=== PATIENT | female | born 1980 | race Two or more races ===

== ENCOUNTER 2025-01-27 00:48 | Inpatient (IN) | payer OTHER ==
[~2025-01-27] VITALS: Ht 160 cm; Wt 76.9 kg
--- NOTE | 2025-01-27 01:38 | ED.PDOC ---
Musculoskeletal HPI Comments HPI: Poor Historian. 45-year-old female presents to emergency department for evaluation of left upper extremity swelling extending to her left neck and left anterior chest wall. Patient is status post midline placement and removal on January 15. Patient was receiving some IV antibiotics and blood transfusion because she was a hard stick. Patient two days after her discharge from the hospital started noticing left left upper extremity swelling extending into her left anterior chest wall and left neck with some mild puffiness. Denies any other associated symptoms. Patient has been feeling some generalized weakness. Patient is visiting family in his area here and decided to check in the hospital. Patient denies bleeding from anywhere. Patient denies . Patient has an IUD. Past Medical History: Transthoracic aortic aneurysm, anemia, anxiety, Past Surgical History: Hernia repair, bone marrow biopsy recently, midline in the left upper extremity, colonoscopy, endoscopy, cholecystectomy, REVIEW OF SYSTEMS: CONSTITUTIONAL: Denies acute: fever, diaphoresis, chills, HEAD: Denies acute: headache, photophobia Eyes: Denies acute: Double vision, vision loss, eye pain, eye discharge. EARS: Denies acute: tinnitus, hearing loss, ear discharge, ear pain, THROAT: Denies acute: sore throat, swelling, difficulty swallowing , pain with swallowing, change in voice. NECK: Denies acute: neck pain, neck swelling, stiff neck. HEART: Denies acute : chest pain, palpitations, LUNGS: Denies acute: SOB, wheezing, cough, hemoptysis ABDOMEN: Denies acute: abdominal pain, Nausea, Vomiting, diarrhea, melena , hematemesis, hematochezia SKIN: Denies acute: rash, redness, lesions, itchiness. EXTREMITIES: Denies acute: calf pain, numbness, tingling, weakness, Denies acute: Low back pain. Neuro: Denies acute: focal neurological deficit, motor or sensory focal neurological deficit, tremors, seizure like activity, confusion, dizziness, change in mental status, loss of bowel or bladder function, cauda equina like symptoms. : Denies acute: dysuria, hematuria, flank pain, increase in urinary frequency. PSYCH: Denies acute: hallucination, suicidal ideation, homicidal ideation. FEMALE: Denies acute: abnormal vaginal bleeding, foul odor, unusual discharge. PHYSICAL EXAM: General: ----[id number]---acute distress, awake and alert. Head: normocephalic, atraumatic. Neck: supple, trachea is midline, no swelling. Throat: Normal phonation. Eyes:, no erythema, no purulent discharge, no proptosis, no icterus. Heart: regular rate, regular rhythm, no significant murmur appreciated. Lungs: no apparent respiratory distress, Able to speak in full sentences. No wheezing, no rhonchi, no crackles. No stridors Clear to auscultation bilaterally. Abdomen: non tender to palpation, non distended, soft, no guarding, no rebound, + bowel sounds. Examination of the chest and left neck shows slight swelling/puffiness and erythema. Examination of the area of complaint left upper extremity is noticeably more swollen than the right. Patient is neurovascularly intact in the affected extremity. Neuro: Awake, Alert, oriented to name, self, situation, follows commands GCS=15. Speech is normal. Skin: no petechia, no purpura, no cyanosis, non-pale, not jaundice. Lower extremities: --no - Pitting edema no deformity, no focal swelling, no calf TTP. Makes eye contact. moves all four extremities. Face: no apparent facial droop. Ambulating in the ED independently. No nuchal rigidity, Kernig's sign, Brudzinski's sign, no meningeal signs. ED COURSE: DISCLAIMER: This medical document was created using an electronic medical record system with voice recognition software and computerized dictation system. Although this document has been carefully reviewed, there might still be some phonetic and typographical errors. Occasional wrong-word or "sound-alike" substitutions may have occurred due to the inherent limitations of voice recognition software. These areas are purely typographical due to imperfections of the software programs and do not reflect any compromise in the patient's medical care. Please read the chart carefully and recognize, using context, where these substitutions have occurred. Chief Complaint: Body Pain Time Seen by MD: 01:05 Reviewed Notes: Allergies Allergies: Coded Allergies: Amoxicillin (Verified Allergy, Unknown, 01/27/25) Bacitracin (Verified Allergy, Unknown, 01/27/25) Clavulanic Acid (Verified Allergy, Unknown, 01/27/25) Neomycin (Verified Allergy, Unknown, 01/27/25) Penicillins (Verified Allergy, Unknown, 01/27/25) Polymyxin B (Verified Allergy, Unknown, 01/27/25) Information Source: Patient Mode of Arrival: Ambulatory Location: Left X-Ray, Labs, Meds, VS Vital Signs Date Time Temp Pulse Resp B/P (MAP) Pulse Ox O2 Delivery O2 Flow Rate FiO2 01/27/25 00:57 98.2 90 18 188/103 97 98.2 Lab Test 01/27/25 02:34 01/27/25 01:37 Range/Units Troponin I High Sensitivity 16 20 </=34 ng/L White Blood Count 7.2 4.4-10.8 10^3/uL Red Blood Count 4.31 4.0-5.20 10^6/uL Hemoglobin 9.9 L 12.2-16.2 g/dL Hematocrit 31.1 L 36.0-46.0 % Mean Corpuscular Volume 72.1 L 80.0-100.0 fL Mean Corpuscular Hemoglobin 23.0 L 28.0-32.0 pg Mean Corpuscular Hemoglobin Concent 31.9 L 32.0-36.0 g/dL Red Cell Distribution Width 23.5 H 11.8-14.3 % Platelet Count 519 H 140-450 10^3/uL Mean Platelet Volume 6.8 L 6.9-10.8 fL Neutrophils (%) (Auto) 70.9 37.0-80.0 % Lymphocytes (%) (Auto) 17.7 10.0-50.0 % Monocytes (%) (Auto) 7.8 0.0-12.0 % Eosinophils (%) (Auto) 2.9 0.0-7.0 % Basophils (%) (Auto) 0.7 0.0-2.0 % Neutrophils # (Auto) 5.1 1.6-8.6 10 ^3/uL Lymphocytes # (Auto) 1.3 0.4-5.4 10 ^3/uL Monocytes # (Auto) 0.6 0-1.3 10 ^3/uL Eosinophils # (Auto) 0.2 0-0.8 10 ^3/uL Basophils # (Auto) 0 0-0.2 10 ^3/uL Nucleated Red Blood Cells 0.0 % Prothrombin Time 10.1 9.3-11.8 sec Prothrombin Time INR 0.95 0.9-1.15 Activated Partial Thromboplast Time 28.1 24.5-34.5 SEC Sodium Level 142 136-145 mmol/L Potassium Level 4.6 3.5-5.1 mmol/L Chloride Level 104 98-107 mmol/L Carbon Dioxide Level 28 20-31 mmol/L Anion Gap 10 5-15 Blood Urea Nitrogen 20 9-23 mg/dL Creatinine 1.08 H 0.550-1.02 mg/dL Glomerular Filtration Rate Calc 65 >90 mL/min BUN/Creatinine Ratio 18.5 10.0-20.0 Serum Glucose 96 74-106 mg/dL Lactic Acid Level 0.8 0.4-2.0 mmol/L Calcium Level 9.2 8.7-10.4 mg/dL Total Bilirubin 0.3 0.2-1.0 mg/dL Aspartate Amino Transferase (AST) 28 13-40 U/L Alanine Aminotransferase (ALT) 30 7-40 U/L Alkaline Phosphatase 125 H 46-116 U/L B-Type Natriuretic Peptide 72.80 0-100 pg/mL Total Protein 7.5 5.7-8.2 g/dL Albumin 4.3 3.2-4.8 g/dL Sepsis Sepsis Reasesment Focused Exam Orders: Laboratory Tests 01/27/25 01:37: Lactic Acid Level 0.8 Departure 1 Departure Time of Disposition: 01:58 Impression: Primary Impression: Left upper extremity deep vein thrombosis Additional Impression: Abnormal finding on CT scan Disposition: ADMITTED INPATIENT Admit to: Tele Condition: Guarded Discharged With: Self ROMMEL BASURTO DO Jan 27, 2025 01:38
[2025-01-27 01:55] LABS: Hemoglobin 9.9 g/dL (12.2-16.2); Nucleated Red Blood Cells % 0.0 %
[2025-01-27 01:56] LABS: Hematocrit 31.1 % (36.0-46.0); Mean Corpuscular Hemoglobin 23.0 pg (28.0-32.0); Mean Corpuscular Volume 72.1 fL (80.0-100.0)
[2025-01-27 02:10] LABS: INR 0.95 (0.9-1.15); Partial Thromboplastin Time 28.1 SEC (24.5-34.5); Prothrombin Time 10.1 sec (9.3-11.8)
[2025-01-27 02:15] LABS: Alanine Aminotransferase 30 U/L (7-40); Albumin 4.3 g/dL (3.2-4.8); Anion Gap 10 (5-15); BUN/Creatinine Ratio 18.5 (10.0-20.0); Blood Urea Nitrogen 20 mg/dL (9-23); Calcium 9.2 mg/dL (8.7-10.4); Carbon Dioxide 28 mmol/L (20-31); Chloride 104 mmol/L (98-107); Glucose 96 mg/dL (74-106); Potassium 4.6 mmol/L (3.5-5.1); Sodium 142 mmol/L (136-145); Total Protein 7.5 g/dL (5.7-8.2)
[2025-01-27 02:16] LABS: Alkaline Phosphatase 125 U/L (46-116); Bilirubin, Total 0.3 mg/dL (0.2-1.0)
--- NOTE | 2025-01-27 02:16 | DVH ---
LEFT Upper Extremity Venous Duplex Clinical History: swelling Comparison: None Technique: Duplex Doppler evaluation of the venous system of the LEFT lower neck and upper extremity including color Doppler and spectral/pulsed waveform analysis was performed. Findings: Occlusive filling defect without compressibility or detectable vascular flow within the internal jugu lar, subclavian, axial, brachial, and basilic veins. The cephalic, radial, and ulnar veins appear pat ent. Impression: Extensive occlusive left upper extremity DVT. Ordering physician notified by hospital attendant as documente d on tech sheet.
--- NOTE | 2025-01-27 02:58 | DVH ---
CHEST RADIOGRAPH Indication: cp Technique: Single frontal view of the chest was obtained COMPARISON: CT CT ANGIO CHEST CONTRAST on DOS: 01/27/25 FINDINGS: Lines and Tubes: None Lungs: Clear Pleura: No effusion. No pneumothorax. Cardiomediastinal contours: Unremarkable Bones: Unremarkable IMPRESSION: 1. No acute disease.
[2025-01-27 03:00] VITALS: O2SAT 98
[2025-01-27] MEDS ORDERED: ACETAMINOPHEN 325 MG TAB PO PRN (03:00)
[2025-01-27] MEDS ORDERED: HEPARIN SODIUM (PORCINE) 5000 UNITS/ML 1ML VIAL IV ONE ×2 (03:00→03:45)
[2025-01-27] MEDS ORDERED: MORPHINE SULFATE INJ 2 MG/ml SYRG IV PRN (03:00)
[2025-01-27] MEDS ORDERED: HEPARIN DRIP/D5W 100UNITS/ML 250 ML IV SCH (03:00)
[2025-01-27] MEDS: IOHEXOL 350 MG/ML 100ML IJ ONE (03:13)
--- NOTE | 2025-01-27 03:14 | DVH ---
CTA Chest with intravenous contrast INDICATION: LUE swelling, L neck swelling, r/o PE COMPARISON: Same-day left upper extremity DVT ultrasound and chest radiograph TECHNIQUE: Multidetector spiral CTA of the chest was performed of the chest with intravenous contrast . PULMONARY ANGIOGRAPHY PROTOCOL was utilized using a bolus-tracking technique centered on the main p ulmonary artery. Axial, coronal and sagittal multiplanar and MIP reformats were performed. Radiation Dose : 1. Chest: CTDI volume is 19.39 mGy. Dose-length product is 741.06 mGy*cm The dose indicators for CT are the volume Computed Tomography (CT) Dose Index (CTDIvol) and the Dose Length Product (DLP), and are measured in units of mGy and mGy-cm, respectively. These indicators are not patient dose, but values generated from the CT scanner acquisition factors. The report includes radiation exposure data for exposures received during this examination. Findings: Pulmonary arteries: Technical factors adequate for assessment of the level of the proximal subsegment al arteries. No filling defect. Main pulmonary artery diameter measures 3.7 cm. Lower neck: Significant left-sided subcutaneous stranding and mild skin thickening. Lungs: No consolidation. No suspicious nodule or mass identified. Pleura: Normal. Heart/Vascular Structures: Mild cardiomegaly. Normal positioning of the interventricular septum. No pericardial effusion. Ascending aortic diameter measures 4.8 cm. Lymph Nodes: Numerous enlarged left axillary lymph nodes. Musculoskeletal: No acute osseous abnormality. Soft tissues: Significant subcutaneous stranding and skin thickening of the proximal left upper extre mity extending to the left breast and presternal soft tissues. Upper abdomen: [id number] hiatal hernia. Cholecystectomy. IMPRESSION: 1. No pulmonary embolism to the level of the proximal subsegmental arteries. 2. Enlargement of central pulmonary artery suggestive of pulmonary hypertension. Mild cardiomegaly. 3. Known left upper extremity DVT on comparison ultrasound. Significant left neck, chest, and upper e xtremity subcutaneous stranding, skin thickening, and axillary adenopathy could be related to veno oc clusive disease however underlying infection or malignancy should be excluded. 4. Ascending aortic dilatation up to 4.8 cm, outpatient follow-up recommended. 5. Qsfpiyuy-[id number] hiatal hernia.
--- NOTE | 2025-01-27 03:17 | DVHHPRES ---
History of Present Illness Resident Creating Document: SAM REDDY History of Present Illness Li Cooper is a 45-year-old female patient who presents to ED with chief complaint of left arm swelling and pain which started eight days ago associated with flu-like symptoms. Patient reports being discharged on 01/15/2025 with midline in left arm due to chronic anemia we will requirement of multiple blood transfusions, she was hospitalized in an other center with the completed bone marrow biopsy, pending results. Midline was removed eight days ago, which is when her symptoms started. Patient also reports left wrist injury approximately eight weeks ago, she required sutures and completed antibiotic course for two weeks, and also got tetanus shot. Denies dyspnea, chest pain in any other associated symptoms. During ER visit completed left upper limb ultrasound which showed extensive DVT, and posterior chest angio CT which ruled out PE, but does show images suggestive of infection/malignancy in left axillary region. Patient was placed on heparin drip, risk of bleeding has been explained extensively with patient. Past medical history: Hypertension, anemia with bone marrow biopsy completed recently (results pending), hiatal hernia, gastritis diagnosed with recent endoscopies, thoracic ascending aorta aneurysm which is stable (per patient cardiology thinks is secondary to chest trauma when she was younger), multiple hospital admissions due to GI bleeding probably secondary to gastritis per patient. Surgical history: Cholecystectomy, inguinal hernia repair, bone marrow biopsy, endoscopies x4 Family history: Grandfather had Hodgkin lymphoma, grandmother had heart disease Social history: Lives in [facility] with friend, she was visiting family in [place] (next of kin is mother). Consumes methamphetamine (last day was yesterday). Denies current tobacco, alcohol and other drug abuse. Allergies: Amoxicillin, bacitracin, clavulanic acid, neomycin, penicillin, polymyxin B Home medication: Pantoprazole, vitamins, iron Patient seen and examined at bedside. Currently has no new complaints. Patient was admitted to telemetry for further evaluation Past Medical History Per HPI Past Surgical History Per HPI Family History Per HPI Past Social History Per HPI Review of Systems Review of Systems Per HPI Allergies: Coded Allergies: Amoxicillin (Verified Allergy, Unknown, 01/27/25) Bacitracin (Verified Allergy, Unknown, 01/27/25) Clavulanic Acid (Verified Allergy, Unknown, 01/27/25) Neomycin (Verified Allergy, Unknown, 01/27/25) Penicillins (Verified Allergy, Unknown, 01/27/25) Polymyxin B (Verified Allergy, Unknown, 01/27/25) Medications Current Medications Medications Dose Ordered Sig/Kassie Route Start Time Stop Time Status Last Admin Dose Admin Acetaminophen 325 mg Q4HP PRN PO 01/27/25 03:00 UNV Morphine Sulfate 2 mg Q4HPRN PRN IV 01/27/25 03:00 UNV Heparin Sodium/ Dextrose 250 ml @ 13.284 mls/ hr [id number] IV 01/27/25 03:00 UNV Vancomycin HCl 250 ml @ 250 mls/hr STAT STAT IV 01/27/25 03:08 01/27/25 04:07 UNV Exam Vital Signs Vital Signs Date Time Temp Pulse Resp B/P (MAP) Pulse Ox O2 Delivery O2 Flow Rate FiO2 01/27/25 00:57 98.2 90 18 188/103 97 98.2 Exam Patient lying in bed, in no acute distress General: Lucid, afebrile, mucosae are moist Cardiovascular: Normal S1 and S2. No murmurs, gallops or rubs Respiratory: Normal ventilation mechanics. Clear lung sounds on auscultation Abdomen: Soft, nontender, no organomegaly, normal bowel sounds MSK/skin: Mobilizes 4 limbs. Skin is dry and warm. Left upper limb swelling with palpable and painful lymph nodes in axilla, associated with fullness of left breast with no abnormal discharges or discoloration Neurological: Oriented in 3 spheres. No motor no sensitive deficits. Pupils are isocoric and reactive Labs/Xrays Labs Test 01/27/25 02:34 01/27/25 01:37 Range/Units Troponin I High Sensitivity 16 </=34 ng/L White Blood Count 7.2 4.4-10.8 10^3/uL Red Blood Count 4.31 4.0-5.20 10^6/uL Hemoglobin 9.9 L 12.2-16.2 g/dL Hematocrit 31.1 L 36.0-46.0 % Mean Corpuscular Volume 72.1 L 80.0-100.0 fL Mean Corpuscular Hemoglobin 23.0 L 28.0-32.0 pg Mean Corpuscular Hemoglobin Concent 31.9 L 32.0-36.0 g/dL Red Cell Distribution Width 23.5 H 11.8-14.3 % Platelet Count 519 H 140-450 10^3/uL Mean Platelet Volume 6.8 L 6.9-10.8 fL Neutrophils (%) (Auto) 70.9 37.0-80.0 % Lymphocytes (%) (Auto) 17.7 10.0-50.0 % Monocytes (%) (Auto) 7.8 0.0-12.0 % Eosinophils (%) (Auto) 2.9 0.0-7.0 % Basophils (%) (Auto) 0.7 0.0-2.0 % Neutrophils # (Auto) 5.1 1.6-8.6 10 ^3/uL Lymphocytes # (Auto) 1.3 0.4-5.4 10 ^3/uL Monocytes # (Auto) 0.6 0-1.3 10 ^3/uL Eosinophils # (Auto) 0.2 0-0.8 10 ^3/uL Basophils # (Auto) 0 0-0.2 10 ^3/uL Nucleated Red Blood Cells 0.0 % Prothrombin Time 10.1 9.3-11.8 sec Prothrombin Time INR 0.95 0.9-1.15 Activated Partial Thromboplast Time 28.1 24.5-34.5 SEC Sodium Level 142 136-145 mmol/L Potassium Level 4.6 3.5-5.1 mmol/L Chloride Level 104 98-107 mmol/L Carbon Dioxide Level 28 20-31 mmol/L Anion Gap 10 5-15 Blood Urea Nitrogen 20 9-23 mg/dL Creatinine 1.08 H 0.550-1.02 mg/dL Glomerular Filtration Rate Calc 65 >90 mL/min BUN/Creatinine Ratio 18.5 10.0-20.0 Serum Glucose 96 74-106 mg/dL Lactic Acid Level 0.8 0.4-2.0 mmol/L Calcium Level 9.2 8.7-10.4 mg/dL Total Bilirubin 0.3 0.2-1.0 mg/dL Aspartate Amino Transferase (AST) 28 13-40 U/L Alanine Aminotransferase (ALT) 30 7-40 U/L Alkaline Phosphatase 125 H 46-116 U/L B-Type Natriuretic Peptide 72.80 0-100 pg/mL Total Protein 7.5 5.7-8.2 g/dL Albumin 4.3 3.2-4.8 g/dL SEPSIS Sepsis Screen Date sepsis recognized/suspect: Jan 27, 2025 Time Sepsis recognized/suspect: 010 Recent Procedure: No On Antibiotic Therapy: No Respiratory Rate >20: No Heart Rate >90: No Temp<36 C (96.8 F) or >38.3 C: No SBP <90 or MAP <65 mmHG: No New Acute Mental Status Change: No Is the patient on CPAP, BIPAP,: No Physician Orders Veneer Department Manager (01/27/25 ) Chest Portable (01/27/25 01:31) Electrocardigram (01/27/25 01:31) Ct Angio Chest Contrast (01/27/25 01:31) Troponin-I Hs (01/27/25 04:31) Lt Upper Dvt (01/27/25 01:31) Admit (01/27/25 02:53) Code Status (01/27/25 02:53) Acetaminophen Tablet (Tylenol Tablet) (01/27/25 03:00) Npo (Nothing By Mouth) Diet (01/27/25 Breakfast) Echo 2d Mode Cardiac Dop (01/27/25 02:53) Morphine Sulfate Injection (01/27/25 03:00) Oxygen By Nasal Cannula (01/27/25 02:53) Stat Ekg For Chest Pain (01/27/25 02:53) Notify Md Of Changes From Base (01/27/25 02:53) Freight Car Cleaner [employer] For 24 Hours (01/27/25 02:53) Emergency Dysrhythmia Protocol (01/27/25 02:53) Rhythm Strips Once Every Shift (01/27/25 02:53) Platelet Monitoring (01/27/25 02:53) Vte Protocol Initiated (01/27/25 02:53) Heparin Per Standardized Proce (01/27/25 02:53) Discontinue All Im Injections (01/27/25 02:53) Heparin Sodium (Porcine) (01/27/25 03:00) Heparin Drip/D5w 100units/Ml (01/27/25 03:00) * Radiologist Consult (01/27/25 03:01) Vancomycin 1gm/250ml Kit (01/27/25 03:08) Vital Signs Date Time Temp Pulse Resp B/P (MAP) Pulse Ox O2 Delivery O2 Flow Rate FiO2 01/27/25 00:57 98.2 90 18 188/103 97 98.2 Laboratory Tests Test 01/27/25 01:37 Lactic Acid Level 0.8 mmol/L (0.4-2.0) White Blood Count 7.2 10^3/uL (4.4-10.8) Assessment/Plan Assessment/Plan Extensive left upper extremity DVT Ruled out pulmonary embolism Evidenced in upper left limb US Completed angio CT of chest that ruled out PE, did evince reactive left axillary lymph nodes (questionable infectious vs malignant etiology) Consulted IR for eventual thrombectomy vs lymph node biopsy Iron deficient microcytic anemia History of GI bleed secondary gastritis Patient recently completed bone marrow biopsy, pending result She has history of requiring multiple blood product transfusion Indicated protonix drip Hypertensive urgency Ascending aortic aneurism - stable Indicated Hydralazine IV Evaluate Labetalol (patient recently consumed methamphetamine) Gave advice on healthy life style habits Methamphetamine abuse Counseled patient on cessation for over 16 minutes Recent right wrist trauma - s/p suture closure No signs of active infection Goals of care discussed with patient for over 18 minutes: Full code status (only wants one round of CPR) Discussed plan with Dr Fuentes, patient and nurses: Patient admitted to telemetry, on heparin drip, has high risk of bleeding. Consulted IR for eventual thrombectomy and axillary node biopsy. Patient has poor prognosis. Plan discussed with: Patient, Other (Nurses) My Orders Orders - SAM REDDY RESIDENT Procedure Category Date Status Time Admit ADMIT 01/27/25 Transmitted 02:53 Code Status CODE 01/27/25 Transmitted 02:53 Acetaminophen Tablet PHA 01/27/25 Logged (Tylenol Tablet) 03:00 Npo (Nothing By DIET 01/27/25 Transmitted Mouth) Diet Breakfast Echo 2d Mode Cardiac US 01/27/25 Logged DOP 02:53 Morphine Sulfate PHA 01/27/25 Logged Injection 03:00 Oxygen By Nasal RT 01/27/25 Transmitted Cannula 02:53 Stat Ekg For Chest [facility] 01/27/25 In Process Pain 02:53 Notify Of Changes [facility] 01/27/25 In Process From Base 02:53 Freight Car Cleaner [employer] For [facility] 01/27/25 In Process 24 Hours 02:53 Emergency Dysrhythmia [facility] 01/27/25 In Process Protocol 02:53 Rhythm Strips Once [facility] 01/27/25 In Process Every Shift 02:53 Platelet Monitoring [facility] 01/27/25 In Process 02:53 Vte Protocol Initiated [facility] 01/27/25 In Process 02:53 Heparin Per [facility] 01/27/25 In Process Standardized Proce 02:53 Discontinue All Im [facility] 01/27/25 In Process Injections 02:53 Heparin Sodium PHA 01/27/25 Logged (Porcine) 03:00 Heparin Drip/D5w PHA 01/27/25 Logged 100units/Ml 03:00 * Radiologist Consult CONS 01/27/25 Transmitted 03:01 Date of Service: Jan 27, 2025 Billing Provider: PEDRO FUENTES MD Common Visit Codes: [id number] INP/OBS CARE (HIGH) Secondary Visit Codes: [id number] CARE PLAN 30 MINUTES SAM REDDY RESIDENT Jan 27, 2025 03:17
[2025-01-27] MEDS: hydrALAZINE HCL 20 MG/ML VL IV ONE (03:45)
[2025-01-27] MEDS: HEPARIN SODIUM (PORCINE) 5000 UNITS/ML 1ML VIAL IV ONE ×2 (04:03→11:51)
[2025-01-27] MEDS: HEPARIN DRIP/D5W 100UNITS/ML 250 ML IV SCH ×2 (04:04→11:56)
[2025-01-27] MEDS: PANTOPRAZOLE 40mg/50ML NS AE 50 ML IV SCH (04:15)
[2025-01-27] MEDS: VANCOMYCIN 1GM/250ML KIT 250 ML IV STA (04:26)
[2025-01-27] MEDS: hydrALAZINE HCL 20 MG/ML VL IV SCH (06:04)
[2025-01-27 07:26] LABS: Iron 50.0 ug/dL (50-170); Total Iron Binding Capacity 414.0 ug/dL (250-425)
[2025-01-27 07:55] VITALS: PULSE 92; RESP 17; O2SAT 96
[2025-01-27 08:06] LABS: Wright Stain Ready for Review
--- NOTE | 2025-01-27 08:53 | DVH ---
US OF THE LEFT BREAST INDICATION: Left breast fullness TECHNIQUE: Targeted left breast ultrasound was performed. COMPARISON: Prior exam dated: None FINDINGS: There is edema in the left breast extending from 1-3 o'clock. There are lymph nodes with thickened co rtex in the left axilla measuring 5 mm. IMPRESSION: Nonspecific edema in the left breast extending from 1-3 o'clock may represent mastitis. No organized fluid collection to suggest abscess formation. Lymph nodes in the left axilla with thickened cortex may be reactive and are probably benign. Further evaluation with diagnostic bilateral mammogram and repeat left breast ultrasound in 1 month i s recommended after clinical management. ACR Bi Rads Category:Category 0-"INCOMPLETE" (Needs Additional Imaging Evaluation))
[2025-01-27] MEDS ORDERED: LABETALOL HCL 20 MG/4 ML VL IV PRN (09:00)
[2025-01-27 10:27] LABS: Hematocrit 34.0 % (36.0-46.0); Hemoglobin 10.4 g/dL (12.2-16.2); Mean Corpuscular Hemoglobin 22.8 pg (28.0-32.0); Mean Corpuscular Volume 74.5 fL (80.0-100.0); Nucleated Red Blood Cells % 0.1 %
[2025-01-27 10:38] LABS: Alanine Aminotransferase 23 U/L (7-40); Albumin 4.1 g/dL (3.2-4.8); Anion Gap 11 (5-15); BUN/Creatinine Ratio 15.1 (10.0-20.0); Blood Urea Nitrogen 14 mg/dL (9-23); Calcium 8.9 mg/dL (8.7-10.4); Carbon Dioxide 24 mmol/L (20-31); Chloride 105 mmol/L (98-107); Cholesterol 160 mg/dL (< 200); Glucose 93 mg/dL (74-106); Magnesium 1.8 mg/dL (1.6-2.6); Potassium 4.0 mmol/L (3.5-5.1); Sodium 140 mmol/L (136-145); Total Protein 7.2 g/dL (5.7-8.2); Triglycerides 111 mg/dL (< 150)
[2025-01-27 10:39] LABS: Bilirubin, Total 0.3 mg/dL (0.2-1.0); HDL Cholesterol 52 mg/dL (40-59)
[2025-01-27 10:40] LABS: Alkaline Phosphatase 123 U/L (46-116)
[2025-01-27 10:45] LABS: INR 0.96 (0.9-1.15); Partial Thromboplastin Time 34.8 SEC (24.5-34.5); Prothrombin Time 10.2 sec (9.3-11.8)
--- NOTE | 2025-01-27 11:15 | CONS ---
Pharmacy Clinical Information: HEPARIN DRIP, DVT PROTOCOL @1015 APTT 34.8 - 5000 UNIT BOLUS / INCREASE RATE TO 1600 UNITS/HR NEXT APTT DRAW SCHEDULED @1700 PER RX PROTOCOL CONFIRMED AND READ BACK WITH RAVIN GAO [facility] RESIDENT Jan 27, 2025 11:15
[2025-01-27] MEDS: PANTOPRAZOLE 40 MG/10 ML VIAL INJ IV SCH (11:49)
[2025-01-27 13:01] LABS: Anisocytosis Moderate
[2025-01-27] MEDS: DOXYCYCLINE 100MG/100ML 100 ML IV SCH (14:14)
[2025-01-27] MEDS: LISINOPRIL 20 MG TAB PO ONE (15:49)
[2025-01-27 18:57] VITALS: BP 131/74; PULSE 97; RESP 16; TEMP 98.5; O2SAT 97
--- NOTE | 2025-01-27 19:40 | DVHPNRES ---
Progress Note Date Seen: Jan 27, 2025 Resident Creating Document: MATA CROCKETT Medical Necessity Reason Pt with a Central, PICC or Fol: No Subjective Review of Systems Li Cooper is a 45-year-old female patient who presents to ED with chief complaint of left arm swelling and pain which started eight days ago associated with flu-like symptoms. Patient reports being discharged on 01/15/2025 with midline in left arm due to chronic anemia we will requirement of multiple blood transfusions, she was hospitalized in an other center with the completed bone marrow biopsy, pending results. Midline was removed eight days ago, which is when her symptoms started. Patient also reports left wrist injury approximately eight weeks ago, she required sutures and completed antibiotic course for two weeks, and also got tetanus shot. Denies dyspnea, chest pain in any other associated symptoms. During ER visit completed left upper limb ultrasound which showed extensive DVT, and posterior chest angio CT which ruled out PE, but does show images suggestive of infection/malignancy in left axillary region. Patient was placed on heparin drip, risk of bleeding has been explained extensively with patient. Past medical history: Hypertension, anemia with bone marrow biopsy completed recently (results pending), hiatal hernia, gastritis diagnosed with recent endoscopies, thoracic ascending aorta aneurysm which is stable (per patient cardiology thinks is secondary to chest trauma when she was younger), multiple hospital admissions due to GI bleeding probably secondary to gastritis per patient. Surgical history: Cholecystectomy, inguinal hernia repair, bone marrow biopsy, endoscopies x4 Family history: Grandfather had Hodgkin lymphoma, grandmother had heart disease Social history: [place] [facility] [place], she was visiting family in [place] (next of kin is mother). Consumes methamphetamine (last day was yesterday). Denies current tobacco, alcohol and other drug abuse. Allergies: Amoxicillin, bacitracin, clavulanic acid, neomycin, penicillin, polymyxin B Home medication: Pantoprazole, vitamins, iron Patient seen and examined at bedside. She reports having axillary and upper arm pain.No new complaints. Past Medical History Per HPI Past Surgical History Per HPI Family History Per HPI Past Social History Per HPI Objective vital signs Vital Sign Date Time Temp Pulse Resp B/P (MAP) Pulse Ox O2 Delivery O2 Flow Rate FiO2 01/27/25 18:57 98.5 97 16 131/74 (93) 97 98.5 01/27/25 07:55 Room Air* 0 21 Total Intake and Output 01/26/25 01/26/25 01/27/25 15:00 23:00 07:00 Intake Total 270 ml Balance 270 ml medications Current Medications Medications Dose Ordered Sig/Kassie Route Start Time Stop Time Status Last Admin Dose Admin Morphine Sulfate 2 mg Q4HPRN PRN IV 01/27/25 03:00 Heparin Sodium/ Dextrose 250 ml @ 13.284 mls/ hr [id number] IV 01/27/25 03:00 UNV Acetaminophen 650 mg Q4HP PRN PO 01/27/25 09:00 Labetalol HCl 10 mg Q4HPRN PRN IV 01/27/25 09:00 Ceftriaxone Sodium 50 ml @ 100 mls/hr DAILY@09 IV 01/28/25 09:00 Doxycycline Hyclate 100 ml @ 50 mls/hr Q12H IV 01/27/25 12:15 01/27/25 14:14 50 MLS/HR Pantoprazole Sodium 40 mg DAILY IV 01/28/25 10:00 Lisinopril 30 mg DAILY PO 01/28/25 10:00 Carvedilol 6.25 mg Q12HR PO 01/27/25 22:00 Enoxaparin Sodium 70 mg Q12HR SC 01/27/25 22:00 Examination Exam Patient lying in bed, in no acute distress General: Lucid, afebrile, mucosae are moist Cardiovascular: Normal S1 and S2. No murmurs, gallops or rubs Respiratory: Normal ventilation mechanics. Clear lung sounds on auscultation Abdomen: Soft, nontender, no organomegaly, normal bowel sounds MSK/skin: Mobilizes 4 limbs. Skin is dry and warm. Left upper limb swelling with palpable and painful lymph nodes in axilla, associated with fullness of left breast with no abnormal discharges or discoloration Neurological: Oriented in 3 spheres. No motor no sensitive deficits. Pupils are isocoric and reactive laboratory and microbiology Laboratory Tests 01/27/25 10:15 Test 01/27/25 10:15 Range/Units Serum Glucose 93 74-106 mg/dL Labs and/or images reviewed: Labs reviewed by me, Image(s) reviewed by me Problem List/Assessment/Plan Problem List/Assessment/Plan Extensive left upper extremity DVT Ruled out pulmonary embolism Evidenced in upper left limb US Ultrasound left breast: Nonspecific edema in the left breast extending from 1-3 o'clock, may represent mastoiditis. No organized fluid collection to suggest abscess formation. Lymph nodes in the left axilla with thickened cortex may be reactive and are probably benign. Further evaluation with diagnostic bilateral mammogram and repeat left breast ultrasound in 1 month is recommended after clinical management. Completed angio CT of chest that ruled out PE, reactive left axillary lymph nodes, likely benign Consulted IR for eventual thrombectomy vs lymph node biopsy: No procedures at this time Heparin discontinued and therapeutic lovenox started Possible Infectious lymphadenopathy Possible mastitis IV ceftriaxone and doxycycline ordered Iron deficient microcytic anemia History of GI bleed secondary gastritis Patient recently completed bone marrow biopsy, pending result She has history of requiring multiple blood product transfusion Indicated protonix drip Hypertensive urgency Ascending aortic aneurism - stable Indicated Hydralazine IV Evaluate Labetalol (patient recently consumed methamphetamine) Gave advice on healthy life style habits Methamphetamine abuse Counseled patient on cessation for over 16 minutes Recent right wrist trauma - s/p suture closure No signs of active infection DVT prophylaxis:Lovenox GI prophylaxis: Pantoprazole Goals of care discussed with patient for over 18 minutes: Full code status (only wants one round of CPR) Plan discussed with: Patient, Other (RN) Date of Service: Jan 27, 2025 Billing Provider: DUGLAS DUPREE MD Common Visit Codes: [id number] INP/OBS CARE(HIGH) MATA CROCKETT RESIDENT Jan 27, 2025 19:40 DUGLAS DUPREE MD Jan 30, 2025 21:07
[2025-01-27 20:30] VITALS: PULSE 81; RESP 18; O2SAT 0
[2025-01-27 21:00] VITALS: BP 135/81; PULSE 80; RESP 19; TEMP 98.2; O2SAT 96
[2025-01-27] MEDS: ACETAMINOPHEN 325 MG TAB PO PRN (23:18)
[2025-01-27] MEDS: CARVEDILOL 3.125 MG TAB PO SCH (23:19)
[2025-01-27] MEDS: ENOXAPARIN SOD 100 MG/1 ML SYRINGE SC SCH (23:20)
[2025-01-28 01:00] VITALS: BP 144/90; PULSE 73; RESP 18; TEMP 97.7; O2SAT 98
[2025-01-28 05:00] VITALS: BP 134/81; PULSE 70; RESP 18; TEMP 98.3; O2SAT 96
[2025-01-28 08:00] VITALS: PULSE 77
[2025-01-28 08:18] LABS: Urine Protein, UAD Negative (Negative)
[2025-01-28 08:21] LABS: Barbiturate Scree,Urine Neg (NEGATIVE); Opiate Scree,Urine Neg (NEGATIVE)
[2025-01-28 08:22] LABS: Amphetamine Screen, Urine Pos (NEGATIVE); Benzodiazephine Screen, Urine Neg (NEGATIVE); Cannabinoid Screen, Urine Neg (NEGATIVE); Cocaine Screen, Urine Neg (NEGATIVE); Phencyclidine Screen, Urine Neg (NEGATIVE)
[2025-01-28] MEDS: PANTOPRAZOLE 40 MG/10 ML VIAL INJ IV SCH (09:52)
[2025-01-28] MEDS: LISINOPRIL 20 MG TAB PO SCH (09:53)
[2025-01-28 10:28] LABS: Hematocrit 33.2 % (36.0-46.0); Hemoglobin 10.1 g/dL (12.2-16.2); Mean Corpuscular Hemoglobin 23.1 pg (28.0-32.0); Mean Corpuscular Volume 75.7 fL (80.0-100.0); Nucleated Red Blood Cells % 0.1 %
[2025-01-28] MEDS ORDERED: MORPHINE SULFATE 4 MG/ML SYR/VIAL IV PRN (10:30)
[2025-01-28 10:36] LABS: Chloride 105 mmol/L (98-107); Potassium 4.3 mmol/L (3.5-5.1); Sodium 140 mmol/L (136-145)
[2025-01-28 10:37] LABS: Anion Gap 10 (5-15); Carbon Dioxide 25 mmol/L (20-31)
[2025-01-28 10:42] LABS: Glucose 91 mg/dL (74-106)
[2025-01-28 11:22] LABS: Calcium 8.6 mg/dL (8.7-10.4)
[2025-01-28 12:15] LABS: BUN/Creatinine Ratio 17.7 (10.0-20.0); Blood Urea Nitrogen 17 mg/dL (9-23)
[2025-01-28 13:00] VITALS: BP 144/95; PULSE 82; RESP 17; TEMP 97.9; O2SAT 97
[2025-01-28] MEDS ORDERED: CARV6.2551 PO (14:00)
[2025-01-28] MEDS ORDERED: LISI20TA56 PO (14:00)
[2025-01-28] MEDS ORDERED: APIX5TAB PO (14:00)
[2025-01-28] MEDS: KETOROLAC TROMETH 30 MG/ML 1ML VIAL IV PRN (14:47)
[2025-01-28 17:00] VITALS: BP 147/97; PULSE 83; RESP 17; TEMP 98; O2SAT 97
[2025-01-28] MEDS ORDERED: PANT40TA2 PO (17:01)
--- NOTE | 2025-01-28 19:12 | DVHDSRES ---
Discharge Summary Date of Admission Resident Creating Document: MATA CROCKETT Jan 27, 2025 at 02:53 Date of Discharge: Jan 28, 2025 Labs/Diagnostic Data: Laboratory Results Test 01/28/25 09:55 01/27/25 12:53 01/27/25 10:15 01/27/25 06:33 White Blood Count 7.0 10^3/uL (4.4-10.8) Red Blood Count 4.39 10^6/uL (4.0-5.20) Hemoglobin 10.1 g/dL (12.2-16.2) Hematocrit 33.2 % (36.0-46.0) Mean Corpuscular Volume 75.7 fL (80.0-100.0) Mean Corpuscular Hemoglobin 23.1 pg (28.0-32.0) Mean Corpuscular Hemoglobin Concent 30.5 g/dL (32.0-36.0) Red Cell Distribution Width 24.4 % (11.8-14.3) Platelet Count 463 10^3/uL (140-450) Mean Platelet Volume 6.8 fL (6.9-10.8) Neutrophils (%) (Auto) 71.0 % (37.0-80.0) Lymphocytes (%) (Auto) 17.2 % (10.0-50.0) Monocytes (%) (Auto) 7.9 % (0.0-12.0) Eosinophils (%) (Auto) 3.0 % (0.0-7.0) Basophils (%) (Auto) 0.9 % (0.0-2.0) Neutrophils # (Auto) 5.0 10 ^3/uL (1.6-8.6) Lymphocytes # (Auto) 1.2 10 ^3/uL (0.4-5.4) Monocytes # (Auto) 0.6 10 ^3/uL (0-1.3) Eosinophils # (Auto) 0.2 10 ^3/uL (0-0.8) Basophils # (Auto) 0.1 10 ^3/uL (0-0.2) Nucleated Red Blood Cells 0.1 % Sodium Level 140 mmol/L (136-145) Potassium Level 4.3 mmol/L (3.5-5.1) Chloride Level 105 mmol/L (98-107) Carbon Dioxide Level 25 mmol/L (20-31) Anion Gap 10 (5-15) Blood Urea Nitrogen 17 mg/dL (9-23) Creatinine 0.96 mg/dL (0.550-1.02) Glomerular Filtration Rate Calc 75 mL/min (>90) BUN/Creatinine Ratio 17.7 (10.0-20.0) Serum Glucose 91 mg/dL (74-106) Calcium Level 8.6 mg/dL (8.7-10.4) Erythrocyte Sedimentation Rate 30 mm/hr (0-20) Haptoglobin 192 mg/dL (42-296) C-Reactive Protein High Sensitivity 2.05 mg/dL (<1.0) Platelet Estimate Adequate Large Platelets Few Hypochromasia (manual) Moderate Anisocytosis (manual) Moderate Microcytosis Moderate Prothrombin Time 10.2 sec (9.3-11.8) Prothrombin Time INR 0.96 (0.9-1.15) Activated Partial Thromboplast Time 34.8 SEC (24.5-34.5) Phosphorus Level 3.4 mg/dL (2.4-5.1) Magnesium Level 1.8 mg/dL (1.6-2.6) Total Bilirubin 0.3 mg/dL (0.2-1.0) Aspartate Amino Transferase (AST) 26 U/L (13-40) Alanine Aminotransferase (ALT) 23 U/L (7-40) Alkaline Phosphatase 123 U/L (46-116) Total Protein 7.2 g/dL (5.7-8.2) Albumin 4.1 g/dL (3.2-4.8) Triglycerides Level 111 mg/dL (< 150) Cholesterol Level 160 mg/dL (< 200) LDL Cholesterol 100 mg/dL (< 100) HDL Cholesterol 52 mg/dL (40-59) Urine Color Light-yellow (Yellow) Urine Clarity Clear (Clear) Urine pH 5.5 (5.0-9.0) Urine Specific [place] 1.028 (1.001-1.035) Urine Protein Negative (Negative) Urine Ketones Negative (Negative) Urine Blood Negative /uL (Negative) Urine Nitrite Negative (Negative) Urine Bilirubin Negative (Negative) Urine Urobilinogen Normal mg/dL (Negative) Urine Leukocyte Esterase Negative /uL (Negative) Urine RBC 1 /hpf (0 - 4) Urine Microscopic WBC 1 /HPF (0-5) Urine Squamous Epithelial Cells Few /hpf (<5) Urine Bacteria None seen /hpf (None Seen) Urine Mucus Few (None Seen) Urine Glucose Normal mg/dL (Normal) Urine Opiates Screen Neg (NEGATIVE) Urine Fentanyl Screen Neg (NEGATIVE) Urine Barbiturates Screen Neg (NEGATIVE) Urine Phencyclidine Screen Neg (NEGATIVE) Urine Amphetamines Screen Pos (NEGATIVE) Urine Benzodiazepines Screen Neg (NEGATIVE) Urine Cocaine Screen Neg (NEGATIVE) Urine Cannabinoids Screen Neg (NEGATIVE) Test 01/27/25 05:58 01/27/25 01:37 Troponin I High Sensitivity 20 ng/L (</=34) Reticulocyte Count (auto) 1.74 % (0.5-1.5) Hemoglobin A1c 4.8 % A1C (<5.7) Lactic Acid Level 0.8 mmol/L (0.4-2.0) Iron Level 50 ug/dL (50-170) Total Iron Binding Capacity 414 ug/dL (250-425) Percent Iron Saturation 12.1 % (15-50) Ferritin 31.1 ng/mL (10-291) B-Type Natriuretic Peptide 72.80 pg/mL (0-100) Vitamin B12 Level 345 pg/mL (211-911) Vitamin D 25-Hydroxy 49.0 ng/mL (30.0-100) Thyroid Stimulating Hormone (TSH) 3.08 uIU/mL (0.55-4.78) Other Laboratory Tests 01/28/25 09:55 Brief Hx & Hospital Course: Li Stern is a 45-year-old female patient who presents to ED with chief complaint of left arm swelling and pain which started eight days ago associated with flu-like symptoms. Patient reports being discharged on 01/15/2025 with midline in left arm due to chronic anemia we will requirement of multiple blood transfusions, she was hospitalized in an other center with the completed bone marrow biopsy, pending results. Midline was removed eight days ago, which is when her symptoms started. Patient also reports left wrist injury approximately eight weeks ago, she required sutures and completed antibiotic course for two weeks, and also got tetanus shot. Denies dyspnea, chest pain in any other associated symptoms. During ER visit completed left upper limb ultrasound which showed extensive DVT, and posterior chest angio CT which ruled out PE, but does show images suggestive of infection/malignancy in left axillary region. Patient was placed on heparin drip, risk of bleeding has been explained extensively with patient. Past medical history: Hypertension, anemia with bone marrow biopsy completed recently (results pending), hiatal hernia, gastritis diagnosed with recent endoscopies, thoracic ascending aorta aneurysm which is stable (per patient cardiology thinks is secondary to chest trauma when she was younger), multiple hospital admissions due to GI bleeding probably secondary to gastritis per patient. Surgical history: Cholecystectomy, inguinal hernia repair, bone marrow biopsy, endoscopies x4 Family history: Grandfather had Hodgkin lymphoma, grandmother had heart disease Social history: Lives in [facility] with friend, she was visiting family in [place] (next of kin is mother). Consumes methamphetamine (last day was yesterday). Denies current tobacco, alcohol and other drug abuse. Allergies: Amoxicillin, bacitracin, clavulanic acid, neomycin, penicillin, polymyxin B Home medication: Pantoprazole, vitamins, iron On further evaluation of her complaints, imaging revealed extensive left upper extremity DVT without pulmonary embolism, and reactive axillary amphetamine with a possible related to infection or malignancy. Breast ultrasound showed nonspecific edema suggestive of mastitis. She was treated with the IV ceftriaxone and doxycycline, transitioned from heparin to therapeutic enoxaparin, and started on IV Protonix for GI prophylaxis, her iron-deficiency microcytic anemia was addressed, patient has recently done a bone marrow biopsy, she is waiting for the results,will follow up on that. She was counseled to stop methamphetamine use based on her UDS results. Was managed with IV morphine. She remains hemodynamically stable, afebrile and oriented. Discharge plan include outpatient follow up for repeat breast imaging, and continued anticoagulation and GI protection. Patient is full code with preference for 1 round of CPR. On the day of discharge, the patient was hemodynamically stable, verbalized understanding of the treatment and discharge plan. The patient will follow up with us in DC clinic and with her PCP regarding further management of her conditions. Exam Patient lying in bed, in no acute distress General: Lucid, afebrile, mucosae are moist Cardiovascular: Normal S1 and S2. No murmurs, gallops or rubs Respiratory: Normal ventilation mechanics. Clear lung sounds on auscultation Abdomen: Soft, nontender, no organomegaly, normal bowel sounds MSK/skin: Mobilizes 4 limbs. Skin is dry and warm. Left upper limb swelling with palpable and painful lymph nodes in axilla, associated with fullness of left breast with no abnormal discharges or discoloration Neurological: Oriented in 3 spheres. No motor no sensitive deficits. Pupils are isocoric and reactive laboratory and microbiology Operations or Procedures PATIENT: LI STERN ACCT: [id number] UNIT: [id number] : 1980 LOC: ER ROOM / BED: / AGE / SEX: 45 / F ADM STATUS: REG ER SERVICE 0 ORDERING PHYSICIAN: ROMMEL BASURTO DO PROCEDURE(s): CXRP - CHEST PORTABLE REASON: cp ORDER NUMBER(s): [id number], ACCESSION NUMBER(s): [id number] CHEST RADIOGRAPH Indication: cp Technique: Single frontal view of the chest was obtained COMPARISON: CT CT ANGIO CHEST CONTRAST on DOS: 01/27/25 FINDINGS: Lines and Tubes: None Lungs: Clear Pleura: No effusion. No pneumothorax. Cardiomediastinal contours: Unremarkable Bones: Unremarkable IMPRESSION: 1. No acute disease. PATIENT: LI STERN ACCT: [id number] UNIT: [id number] : 1980 LOC: OVERFLOW ROOM / BED: [facility] [place] / A AGE / SEX: 45 / F ADM STATUS: ADM IN SERVICE 0 ORDERING PHYSICIAN: ROMMEL BASURTO DO PROCEDURE(s): CTACH - CT ANGIO CHEST CONTRAST REASON: LUE swelling, L neck swelling, r/o PE ORDER NUMBER(s): [id number], ACCESSION NUMBER(s): [id number] CTA Chest with intravenous contrast INDICATION: LUE swelling, L neck swelling, r/o PE COMPARISON: Same-day left upper extremity DVT ultrasound and chest radiograph TECHNIQUE: Multidetector spiral CTA of the chest was performed of the chest with intravenous contrast. PULMONARY ANGIOGRAPHY PROTOCOL was utilized using a bolus- tracking technique centered on the main pulmonary artery. Axial, coronal and sagittal multiplanar and MIP reformats were performed. Radiation Dose : 1. Chest: CTDI volume is 19.39 mGy. Dose-length product is 741.06 mGy*cm The dose indicators for CT are the volume Computed Tomography (CT) Dose Index (CTDIvol) and the Dose Length Product (DLP), and are measured in units of mGy and mGy-cm, respectively. These indicators are not patient dose, but values generated from the CT scanner acquisition factors. The report includes radiation exposure data for exposures received during this examination. Findings: Pulmonary arteries: Technical factors adequate for assessment of the level of the proximal subsegmental arteries. No filling defect. Main pulmonary artery diameter measures 3.7 cm. Lower neck: Significant left-sided subcutaneous stranding and mild skin thickening. Lungs: No consolidation. No suspicious nodule or mass identified. Pleura: Normal. Heart/Vascular Structures: Mild cardiomegaly. Normal positioning of the interventricular septum. No pericardial effusion. Ascending aortic diameter measures 4.8 cm. Lymph Nodes: Numerous enlarged left axillary lymph nodes. Musculoskeletal: No acute osseous abnormality. Soft tissues: Significant subcutaneous stranding and skin thickening of the proximal left upper extremity extending to the left breast and presternal soft tissues. Upper abdomen: [id number] hiatal hernia. Cholecystectomy. IMPRESSION: 1. No pulmonary embolism to the level of the proximal subsegmental arteries. 2. Enlargement of central pulmonary artery suggestive of pulmonary hypertension. Mild cardiomegaly. 3. Known left upper extremity DVT on comparison ultrasound. Significant left neck, chest, and upper extremity subcutaneous stranding, skin thickening, and axillary adenopathy could be related to veno occlusive disease however underlying infection or malignancy should be excluded. 4. Ascending aortic dilatation up to 4.8 cm, outpatient follow-up recommended. 5. [id number] hiatal hernia. PATIENT: LI STERN ACCT: [id number] UNIT: [id number] : 1980 LOC: ER ROOM / BED: / AGE / SEX: 45 / F ADM STATUS: REG ER SERVICE 0131 ORDERING PHYSICIAN: ROMMEL BASURTO DO PROCEDURE(s): LUDVT - LT Upper DVT REASON: swelling ORDER NUMBER(s): [id number], ACCESSION NUMBER(s): [id number] LEFT Upper Extremity Venous Duplex Clinical History: swelling Comparison: None Technique: Duplex Doppler evaluation of the venous system of the LEFT lower neck and upper extremity including color Doppler and spectral/pulsed waveform analysis was performed. Findings: Occlusive filling defect without compressibility or detectable vascular flow within the internal jugular, subclavian, axial, brachial, and basilic veins. The cephalic, radial, and ulnar veins appear patent. Impression: Extensive occlusive left upper extremity DVT. Ordering physician notified by instructor ground services as documented on tech sheet. PATIENT: LI STERN ACCT: [id number] UNIT: [id number] : 1980 LOC: OVERFLOW ROOM / BED: [address] [place] [address] AGE / SEX: 45 / F ADM STATUS: ADM IN SERVICE 06 ORDERING PHYSICIAN: SAM REDDY RESIDENT PROCEDURE(s): LBRST - L BREAST ULTRASOUND REASON: Left breast fullness ORDER NUMBER(s): [id number], ACCESSION NUMBER(s): [id number] US OF THE LEFT BREAST INDICATION: Left breast fullness TECHNIQUE: Targeted left breast ultrasound was performed. COMPARISON: Prior exam dated: None FINDINGS: There is edema in the left breast extending from 1-3 o'clock. There are lymph nodes with thickened cortex in the left axilla measuring 5 mm. IMPRESSION: Nonspecific edema in the left breast extending from 1-3 o'clock may represent mastitis. No organized fluid collection to suggest abscess formation. Lymph nodes in the left axilla with thickened cortex may be reactive and are probably benign. Further evaluation with diagnostic bilateral mammogram and repeat left breast ultrasound in 1 month is recommended after clinical management. Condition at Discharge: Stable Final Diagnosis/Problems List Extensive left upper extremity DVT Ruled out pulmonary embolism Evidenced in upper left limb US Infectious lymphadenopathy Mastitis Iron deficient microcytic anemia History of GI bleed secondary gastritis Hypertensive urgency Ascending aortic aneurism - stable Methamphetamine abuse Recent right wrist trauma - s/p suture closure Discharge Disposition: Home Discharge Instruct/Medications Diet: Consistent carbohydrate Activity: No Restrictions, As Tolerated Follow Up/Referral: follow up with PCP and DC clinic in 2 weeks Medications: as per EMR Scheduled Apixaban Base (Eliquis), 5 MG PO BID Apixaban Base (Eliquis), 10 MG PO BID Carvedilol (Carvedilol), 1 TAB PO BID Lisinopril (Lisinopril), 30 MG PO DAILY Pantoprazole Sodium Sesquihydr (Protonix), 40 MG PO DAILY Discharge Statement: "Patient was advised to return to the ER or call 911 if any headaches, dizziness, shortness of breath, chest pain, abdominal pain, bleeding, fevers, or worsening of medical condition. Patient was counseled about treatment plan, medications, possible side effects, patientverbalized understanding. All questions were answered to the best of my ability. This discharge took greater then 30 minutes in planning, reviewing documentation, counseling the patient, and discussing with other team members." ASSESSMENT ASSESSMENT Assessment Upper extremity DVT Date of Service: Jan 28, 2025 Billing Provider: DUGLAS DUPREE MD Common Visit Codes: 03965-PAK/OBS DISCH DAY >30min MATA CROCKETT RESIDENT Jan 28, 2025 19:12 DUGLAS DUPREE MD Jan 30, 2025 21:07
[2025-01-29] MEDS ORDERED: APIX5TAB PO (16:56)
--- NOTE | 2025-02-01 18:19 | DVHSR ---
APPROVED REPORT EXAM: Two-dimensional and M-mode echocardiogram with Doppler and color Doppler. Blood Pressure: 200/94 mmHg INDICATION Extensive DVT RISK FACTORS Height: 5' 3", Weight: 162 DIMENSIONS LVDd4.5 (3.8-5.7cm)LA (2D)4.6 (1.9-4.0cm)Aortic Root5.0 (2.0-3.7cm) LVDs3.3 (2.5-4.0cm)LA (MM) (1.9-4.0cm)Aortic Cusp Exc1.6 (1.5-2.0cm) EF (%) 55.0 (55-70%)Rt. Atrium3.9 (1.9-4.0cm)Asc. Aorta5.1 cm IVSd1.1 (0.7-1.1cm)RV (D) (1.8-2.4cm) PWd1.0 (0.7-1.1cm) Mitral Valve MitralMitral Stenosis E wave0.90m/sMV Mean GR.mmHg A wave0.90m/sMV Peak GR.mmHg E/A ratio1.02D MVAcm2 Aortic Valve Aortic ValveAortic Stenosis V12.00m/Ivan Mean GR.8mmHg V22.00m/Ivan Peak GR.16mmHg LVOT Diameter2.1 (1.8-2.4cm)Doppler AVA3.46cm2 AI P 1/2 Dukb418.57ms Conclusion Sinus rhythm. Concentric LVH with aortic root enlargement. Sigmoid septum noted. Valves appear to be structurally normal. Left ventricular function is preserved at 55% with normal RV function. Moderate aortic insufficiency. Mild tricuspid regurgitation. No pericardial effusion masses or vegetations.
== END 2025-01-28 21:15 | disposition home or self-care (01) | DRG 197 ==
LOC: ER 00:48 → OVERFLOW 02:53 → TELE-WESTW 20:30
PROVIDERS: ADMIT Internal Medicine Geriatric Medicine; ATTEND Internal Medicine Geriatric Medicine
DX: I82.622 Acute embolism and thrombosis of deep veins of left upper extremity (principal); I16.0 Hypertensive urgency; D50.9 Iron deficiency anemia, unspecified; F41.9 Anxiety disorder, unspecified; I10 Essential (primary) hypertension; F15.10 Other stimulant abuse, uncomplicated; I71.21 Aneurysm of the ascending aorta, without rupture; R59.1 Generalized enlarged lymph nodes; N61.0 Mastitis without abscess; Z90.49 Acquired absence of other specified parts of digestive tract; Z98.891 History of uterine scar from previous surgery; Z88.0 Allergy status to penicillin; Z88.1 Allergy status to other antibiotic agents; Z79.899 Other long term (current) drug therapy
CPT/HCPCS: 36415; 71045; 71275; 76642; 80048; 80053; 80061; 80307; 81001; 82306; 82607; 82728; 83010; 83036; 83540; 83550; 83605; 83735; 83880; 84100; 84443; 84484; 85025; 85045; 85610; 85652; 85730; 86141; 87081; 93306; 93971; G0378; J1885; J2470

== ENCOUNTER 2025-03-15 18:46 | Inpatient (IN) | payer OTHER ==
[~2025-03-15] VITALS: Ht 160 cm; Wt 76.0 kg
[2025-03-15] MEDS: CIPROFLOXACIN 400MG/200ML 200 ML IV ONE (00:10)
[2025-03-15] MEDS: SODIUM CHLORIDE 0.9% 500 ML IV ONE (01:00)
[~2025-03-15 18:46] MED LIST: APIX5TAB PO; CARV6.2551 PO; LISI20TA56 PO; PANT40TA2 PO
--- NOTE | 2025-03-15 19:24 | ED.PDOC ---
GI ASSESSMENT HPI Comments Patient is a 45-year-old A1 female with past medical history of hypertension, chronic anemia, gastritis, thoracic ascending aneurysm 4.8 cm, left upper extremity DVT currently on Eliquis, pulmonary hypertension, who comes in due to acute intractable abdominal pain. According to the patient, abdominal pain started this morning, which she describes as a knot like pain in localizes it to the midepigastrium without any radiation, pain is relieved by sitting up and exacerbated by movement. She describes the pain as 10/10 in intensity, associated with nausea, diarrhea and dizziness. Denies having similar symptoms in the past. On review of systems patient is complaining of cough, shortness of breath, nausea no vomiting, and urinary urgency. CBC, BMP, lipase and a CT abdomen pelvis was ordered for the patient. Chief Complaint: Abdominal Pain Time Seen by MD: 19:00 Allergies: Coded Allergies: Amoxicillin (Verified Allergy, Unknown, 01/27/25) Bacitracin (Verified Allergy, Unknown, 01/27/25) Clavulanic Acid (Verified Allergy, Unknown, 01/27/25) Neomycin (Verified Allergy, Unknown, 01/27/25) Penicillins (Verified Allergy, Unknown, 01/27/25) Polymyxin B (Verified Allergy, Unknown, 01/27/25) Home Meds Active Scripts Apixaban Base (ELIQUIS) 5 Mg Tab, 10 MG PO BID for 7 Days, #28 TAB 0 Refills 10MG BID X 7 DAYS THEN 5MG PO BID FOR AT LEAST 6 MONTHS FOR DVT/PE TREATMENT Prov:ANGELICA KEBEDE 01/29/25 Apixaban Base (ELIQUIS) 5 Mg Tab, 5 MG PO BID for 30 Days, #60 TAB 0 Refills Prov:ANGELICA KEBEDE [facility] [place] 01/29/25 Pantoprazole Sodium Sesquihydr (Protonix) 40 Mg Tab, 40 MG PO DAILY for 30 Days, #30 TAB 0 Refills Prov:ANGELICA KEBEDE 01/28/25 Carvedilol (Carvedilol) 6.25 Mg Tab, 1 TAB PO BID for 30 Days, #60 TAB 0 Refills Prov:ANGELICA KEBEDE 01/28/25 Lisinopril (Lisinopril) 20 Mg Tab, 30 MG PO DAILY for 30 Days, #45 TAB 0 Refills Prov:ANGELICA KEBEDE RESIDENT 01/28/25 Information Source: Patient Mode of Arrival: Ambulatory Timing: Hours Duration: Since onset Quality: Stabbing Vomitus: None Stool: Watery Severity: Moderate Recent: Ingestion of ETOH, Iron Supplements Pain Location: Diffuse, Epigastric Modifying Factors: Movement, Lying still Associated sign and symptoms: Nausea, Diarrhea Past Medical History Past Medical History (Contd): hypertension, chronic anemia, gastritis, thoracic ascending aneurysm 4.8 cm, pulmonary hypertension, left upper extremity DVT (currently on Eliquis) Surgical History (Cont'd) Cholecystectomy, inguinal hernia repair surgery, EGD, bone marrow biopsy Social History Smoker: Non-Smoker Alcohol: Occasionally (Last drinks last night) Drugs: Methamphetamine Lives In: Home Constitutional: reports: weakness; denies: chills, diaphoresis, fatigue, fever, malaise, sweats, others EENTM: denies: blurred vision, double vision, ear bleeding, ear discharge, ear drainage, ear pain, ear ringing, eye pain, eye redness, hearing loss, mouth pain, mouth swelling, nasal discharge, nose bleeding, nose congestion, nose pain, photophobia, tearing, throat pain, throat swelling, voice changes, others Respiratory: reports: cough, shortness of breath; denies: hemoptysis, orthopnea, SOB at rest, SOB with excertion, stridor, wheezing, others Cardiovascular: denies: chest pain, dizzy spells, diaphoresis, Dyspnea on exertion, edema, irregular heart beat, left arm pain, lightheadedness, palpitations, PND, syncope, others Gastrointestinal: reports: abdomen distended, abdominal pain, diarrhea, nausea, poor fluid intake; denies: blood streaked bowels, constipated, dysphagia, difficulty swallowing, hematemesis, melena, poor appetite, rectal bleeding, rectal pain, vomiting, others Genitourinary: reports: urgency; denies: abnormal vagina bleeding, burning, dyspareunia, dysuria, flank pain, frequency, hematuria, incontinence, pain, , vagina discharge, others Neurological: denies: dizziness, fainting, headache, left sided numbness, left sided weakness, numbness, paresthesia, pre-existing deficit, right sided numbness, right sided weakness, seizure, speech problems, tingling, tremors, weakness, others Musculoskeletal: denies: back pain, gout, joint pain, joint swelling, muscle pain, muscle stiffness, neck pain, others Integumetry: denies: bruises, change in color, change in hair/nails, dryness, laceration, lesions, lumps, rash, wounds, others Allergic/Immunocompromised: denies: Difficulty Healing, Frequent Infections, Hives, Itching, others Hematologic/Lymphatic: reports: anemia, blood clots; denies: easy bleeding, easy bruising, swollen glands, others Endocrine: denies: excessive hunger, excessive sweating, excessive thirst, excessive urination, flushing, intolerance to cold, intolerance to heat, unexplained weight gain, unexplained weight loss, others Psychiatric: denies: anxiety, bipolar disorder, depression, hopeless, panic disorder, schizophrenia, sleepless, suicidal, others Physical Exam General Appearance: Moderate Distress HEENT: Normal ENT Inspection, PERRL/EOMI Neck: Non-Tender, Normal, Normal Inspection Respiratory: No Accessory Muscle Use, No Respiratory Distress, Normal Breath Sounds Cardiovascular: No JVD, No Murmur, Tachycardia Breast Exam: Deferred Gastrointestinal: Diffuse, LLQ, LUQ, Tenderness Genitalia: Deferred Pelvic: Deferred Rectal: Rectal Exam not done Extremities: No calf tenderness, Normal capillary refill, Normal inspection, Normal range of motion, Non-tender, No pedal edema Neurologic: Alert, No Motor Deficits, Normal Mood, No Sensory Deficits Cerebellar Function: Normal Reflexes: NOT DONE Skin: Dry, Normal Color Peripheral Pulses: 2+ dorsalis pedis (R), 2+ dorsalis pedis (L) Lymphatic: NOT DONE Was a procedure done? Was a procedure done?: No GI differential Dx Differential Diagnosis: Angina/[place], Bowel Obstruction, Gastritis/PUD, Gastroenteritis, Pancreatitis X-Ray, Labs, Meds, VS Vital Signs Date Time Temp Pulse Resp B/P (MAP) Pulse Ox O2 Delivery O2 Flow Rate FiO2 03/15/25 18:47 98.0 109 16 137/80 96 98.0 Lab Test 03/15/25 19:25 Range/Units White Blood Count 5.6 4.4-10.8 10^3/uL Red Blood Count 3.50 L 4.0-5.20 10^6/uL Hemoglobin 6.5 *L 12.2-16.2 g/dL Hematocrit 21.9 L 36.0-46.0 % Mean Corpuscular Volume 62.6 L 80.0-100.0 fL Mean Corpuscular Hemoglobin 18.6 L 28.0-32.0 pg Mean Corpuscular Hemoglobin Concent 29.7 L 32.0-36.0 g/dL Red Cell Distribution Width 25.3 H 11.8-14.3 % Platelet Count 380 140-450 10^3/uL Mean Platelet Volume 8.1 6.9-10.8 fL Neutrophils (%) (Auto) 87.8 H 37.0-80.0 % Lymphocytes (%) (Auto) 6.4 L 10.0-50.0 % Monocytes (%) (Auto) 5.2 0.0-12.0 % Eosinophils (%) (Auto) 0.4 0.0-7.0 % Basophils (%) (Auto) 0.2 0.0-2.0 % Neutrophils # (Auto) 4.9 1.6-8.6 10 ^3/uL Lymphocytes # (Auto) 0.4 0.4-5.4 10 ^3/uL Monocytes # (Auto) 0.3 0-1.3 10 ^3/uL Eosinophils # (Auto) 0 0-0.8 10 ^3/uL Basophils # (Auto) 0 0-0.2 10 ^3/uL Nucleated Red Blood Cells 0.3 % Platelet Estimate Pending Sodium Level Pending Potassium Level Pending Chloride Level Pending Carbon Dioxide Level Pending Anion Gap Pending Blood Urea Nitrogen Pending Creatinine Pending Glomerular Filtration Rate Calc Pending BUN/Creatinine Ratio Pending Serum Glucose Pending Calcium Level Pending Troponin I High Sensitivity Pending Lipase Pending Time of 1ST Reevaluation: 19:30 Reevaluation 1ST: Worsened Patient Education/Counseling: Diagnosis, Treatment, Prognosis, Need For Follow Up Family Education/Counseling: No Family Present SEPSIS Sepsis Screen Date sepsis recognized/suspect: Mar 15, 2025 Time Sepsis recognized/suspect: 1848 Recent Procedure: No On Antibiotic Therapy: No Respiratory Rate >20: No Heart Rate >90: Yes Temp<36 C (96.8 F) or >38.3 C: No SBP <90 or MAP <65 mmHG: No New Acute Mental Status Change: No Is the patient on CPAP, BIPAP,: No Physician Orders Complete Blood Count (03/15/25 19:15) Basic Metabolic Panel (03/15/25 19:15) Lipase (03/15/25 19:15) Troponin-I Hs (03/15/25 19:15) Test, Urine (03/15/25 19:15) Ct Ab Pel Wo Con-No Oral Or Iv (03/15/25 19:15) Troponin-I Hs (03/15/25 20:15) Troponin-I Hs (03/15/25 22:15) Rbc Morphology (03/15/25 19:25) Packedcell-Noactive Bleeding (03/15/25 19:48) Type And Screen (03/15/25 19:48) Stool Occult Blood (03/15/25 19:50) Vital Signs Date Time Temp Pulse Resp B/P (MAP) Pulse Ox O2 Delivery O2 Flow Rate FiO2 03/15/25 18:47 98.0 109 16 137/80 96 98.0 Laboratory Tests Test 03/15/25 19:25 White Blood Count 5.6 10^3/uL (4.4-10.8) Departure 1 Departure Time of Disposition: 19:51 Impression: Primary Impression: Acute pancreatitis Qualified Codes: K85.90 - Acute pancreatitis without necrosis or infection, unspecified Additional Impressions: Gastritis Qualified Codes: K29.70 - Gastritis, unspecified, without bleeding Non-specific colitis Diverticulitis of intestine Qualified Codes: K57.92 - Diverticulitis of intestine, part unspecified, without perforation or abscess without bleeding Appendicitis Qualified Codes: K37 - Unspecified appendicitis Disposition: 09 ADMITTED INPATIENT Condition: Guarded Critical Care Note Critical Care Time?: No Stability Stability form required: NAVARRO Matthews RESIDENT Mar 15, 2025 19:24 UMM SPENCER MD Mar 15, 2025 19:58
[2025-03-15 19:41] LABS: Mean Corpuscular Hemoglobin 18.6 pg (28.0-32.0); Nucleated Red Blood Cells % 0.3 %
[2025-03-15 19:42] LABS: Hematocrit 21.9 % (36.0-46.0); Mean Corpuscular Volume 62.6 fL (80.0-100.0)
[2025-03-15 19:47] LABS: Hemoglobin 6.5 g/dL (12.2-16.2)
[2025-03-15 19:54] LABS: Chloride 105 mmol/L (98-107); Potassium 4.7 mmol/L (3.5-5.1); Sodium 140 mmol/L (136-145)
[2025-03-15 19:55] LABS: Anion Gap 10 (5-15); Carbon Dioxide 25 mmol/L (20-31)
[2025-03-15 20:00] LABS: BUN/Creatinine Ratio 22.3 (10.0-20.0); Blood Urea Nitrogen 23 mg/dL (9-23); Lipase 29 U/L (12-53)
[2025-03-15 20:02] LABS: Anisocytosis Slight
[2025-03-15 20:05] LABS: Calcium 8.2 mg/dL (8.7-10.4); Glucose 118 mg/dL (74-106)
--- NOTE | 2025-03-15 20:34 | DVHHPRES ---
History of Present Illness Resident Creating Document: MATA CROCKETT RESIDENT History of Present Illness Li Cooper, a 45-year-old female A1 with past medical history of hypertension on lisinopril, chronic anemia, gastritis, ascending thoracic aortic aneurysm measuring 4.8 cm, left upper extremity DVT currently on Eliquis, pulmonary hypertension presented to the ER with intractable epigastric abdominal pain radiating diffusely to the whole abdomen associated with nausea, pain exacerbates on movement and improves on sitting up. The pain started since morning, currently rating 10/10. She reports having shortness of breaths, which she believes improve on lying down. She denies any fever, chest pain, in symptoms or any other complaints. She reports having EGD and colonoscopy done in September, which was unremarkable, no bleeding source was found. Past medical history: As above Past surgical history: Cholecystectomy, hernia repair Menstrual history: Menstrual cycle regular, LMP 1st week of February Allergies: Amoxicillin, bacitracin, Neosporin, neomycin, penicillin, polymyxin B Home medications: Lisinopril Smoking: Never alcohol: Occasionally Drugs: Methamphetamine occasionally, last usage was 2 days ago. Code status: Please revisit code status Past Surgical History: Total knee replacement Review of Systems Gastrointestinal: Nausea, Abdominal Pain Allergies: Coded Allergies: Amoxicillin (Verified Allergy, Unknown, 01/27/25) Bacitracin (Verified Allergy, Unknown, 01/27/25) Clavulanic Acid (Verified Allergy, Unknown, 01/27/25) Neomycin (Verified Allergy, Unknown, 01/27/25) Penicillins (Verified Allergy, Unknown, 01/27/25) Polymyxin B (Verified Allergy, Unknown, 01/27/25) Exam Vital Signs Vital Signs Date Time Temp Pulse Resp B/P (MAP) Pulse Ox O2 Delivery O2 Flow Rate FiO2 03/15/25 18:47 98.0 109 16 137/80 96 98.0 Exam Pt is lying on bed General Appearance: Alert, Oriented X3, Cooperative, Mild distress HEENT: Atraumatic, Mucous membranes moist/pink Respiratory: Clear to auscultation, Normal air movement, No added sounds Cardiovascular: Regular rate, Normal S1, Normal S2, No murmurs Abdominal/ : Active bowel sounds, Soft, no distention, diffuse abdominal tenderness Rectal exam: No active bleeding, no external hemorrhoids noted, no abscess, stool FOBT sent. Extremities: No edema, Normal pulses, No tenderness/swelling Skin: No Significant rash, except past surgical scars Neuro: Normal speech, sensorimotor deficits none Psych/Mental Status: Mental status NL, Mood NL Nurse was there as office machine mechanic during examination Labs/Xrays Labs Test 03/15/25 20:25 03/15/25 19:25 Range/Units White Blood Count 5.6 4.4-10.8 10^3/uL Red Blood Count 3.50 L 4.0-5.20 10^6/uL Hemoglobin 6.5 *L 12.2-16.2 g/dL Hematocrit 21.9 L 36.0-46.0 % Mean Corpuscular Volume 62.6 L 80.0-100.0 fL Mean Corpuscular Hemoglobin 18.6 L 28.0-32.0 pg Mean Corpuscular Hemoglobin Concent 29.7 L 32.0-36.0 g/dL Red Cell Distribution Width 25.3 H 11.8-14.3 % Platelet Count 380 140-450 10^3/uL Mean Platelet Volume 8.1 6.9-10.8 fL Neutrophils (%) (Auto) 87.8 H 37.0-80.0 % Lymphocytes (%) (Auto) 6.4 L 10.0-50.0 % Monocytes (%) (Auto) 5.2 0.0-12.0 % Eosinophils (%) (Auto) 0.4 0.0-7.0 % Basophils (%) (Auto) 0.2 0.0-2.0 % Neutrophils # (Auto) 4.9 1.6-8.6 10 ^3/uL Lymphocytes # (Auto) 0.4 0.4-5.4 10 ^3/uL Monocytes # (Auto) 0.3 0-1.3 10 ^3/uL Eosinophils # (Auto) 0 0-0.8 10 ^3/uL Basophils # (Auto) 0 0-0.2 10 ^3/uL Nucleated Red Blood Cells 0.3 % Platelet Estimate Adequate Hypochromasia (manual) Moderate Anisocytosis (manual) Slight Microcytosis Moderate Sodium Level 140 136-145 mmol/L Potassium Level 4.7 3.5-5.1 mmol/L Chloride Level 105 98-107 mmol/L Carbon Dioxide Level 25 20-31 mmol/L Anion Gap 10 5-15 Blood Urea Nitrogen 23 9-23 mg/dL Creatinine 1.03 H 0.550-1.02 mg/dL Glomerular Filtration Rate Calc 69 >90 mL/min BUN/Creatinine Ratio 22.3 H 10.0-20.0 Serum Glucose 118 H 74-106 mg/dL Calcium Level 8.2 L 8.7-10.4 mg/dL Lipase 29 12-53 U/L SEPSIS Sepsis Screen Date sepsis recognized/suspect: Mar 15, 2025 Time Sepsis recognized/suspect: 1848 Recent Procedure: No On Antibiotic Therapy: No Respiratory Rate >20: No Heart Rate >90: Yes Temp<36 C (96.8 F) or >38.3 C: No SBP <90 or MAP <65 mmHG: No New Acute Mental Status Change: No Is the patient on CPAP, BIPAP,: No Physician Orders Test, Urine (03/15/25 19:15) Ct Ab Pel Wo Con-No Oral Or Iv (03/15/25 19:15) Troponin-I Hs (03/15/25 20:15) Troponin-I Hs (03/15/25 22:15) Packedcell-Noactive Bleeding (03/15/25 19:48) Type And Screen (03/15/25 19:48) Stool Occult Blood (03/15/25 19:50) Vital Signs Date Time Temp Pulse Resp B/P (MAP) Pulse Ox O2 Delivery O2 Flow Rate FiO2 03/15/25 18:47 98.0 109 16 137/80 96 98.0 Laboratory Tests Test 03/15/25 19:25 White Blood Count 5.6 10^3/uL (4.4-10.8) Assessment/Plan Assessment/Plan Severe microcytic hypochromic anemia Iron-deficiency anemia (hemoglobin 6.5) History of blood transfusion Ascending aortic aneurysm measuring 4.7 cm -low transferrin saturation, high TIBC -LDH, haptoglobin reticulocyte ordered Large hiatal hernia Ileitis Possible IBD History of gastritis -IV pantoprazole -Abdomen pelvis CT:Diffuse wall thickening of a loop of distal ileum most consistent with ileitis. Correlate clinically for possible inflammatory bowel disease.Ascending aortic aneurysm measuring approximately 4.7 cm.Large hiatal hernia with the fluid-filled gastric fundus located in the posterior mediastinum . Aspiration precautions are recommended.Normal appendix Moderate stool burden, constipation ruled out History of upper extremity DVT Held Eliquis due to severe anemia Hypertensive heart disease -lisinopril -Carvedilol GI prophylaxis: Pantoprazole DVT prophylaxis: Held due to severe anemia Diet: Clear liquid Goals of care discussed with the patient for more than 27 minutes: Full code status Case discussed with Dr. Madrigal, patient and RN Plan discussed with: Patient, Other (RN) Date of Service: Mar 15, 2025 Billing Provider: RYLAND MADRIGAL MD Common Visit Codes: 23957-JXTZIGU INP/OBS CARE (HIGH) Secondary Visit Codes: 72324-GCICHMRB CARE PLAN 30 MINUTES MATA CROCKETT RESIDENT Mar 15, 2025 20:34
[2025-03-15] MEDS ORDERED: NITROGLYCERIN 0.4 MG SL TAB SL PRN (20:45)
[2025-03-15] MEDS ORDERED: MORPHINE SULFATE INJ 2 MG/ml SYRG IV PRN (20:45)
--- NOTE | 2025-03-15 21:07 | DVH ---
COMPUTERIZED TOMOGRAPHY ABDOMEN AND PELVIS WITHOUT CONTRAST REASON FOR EXAM: Acute intractable abdominal pain COMPARISON: None TECHNIQUE: Spiral scans were acquired from the diaphragm to the symphysis pubis without intravenous contrast administration. 2-D coronal and sagittal reformatted images were provided. Radiation optimization: All CT scans at this facility use at least one of these dose optimization techniques: Automated exposure control mA and/or kV adjustment per patient size (includes targeted exams where dose is matched to clinical indication) or iterative reconstruction. RADIATION DOSE: CTDI: 16 mGy DLP: 928 mGy-cm FINDINGS: There is scattered mild linear atelectasis versus scarring at both lung bases. There is no pleural effusion. There is no pericardial effusion. There is ascending aortic aneurysm at 4.7 cm. There is a large hiatal hernia with the fluid-filled gastric fundus located in the posterior mediastinum. The spleen is not enlarged. The liver is borderline enlarged at 17.6 cm in length. Evaluation of the abdominal organs is suboptimal in the absence of intravenous contrast. The gallbladder is surgically absent. Unenhanced appearance of the pancreas is grossly unremarkable. The adrenal glands appear normal. The kidneys are similar in size. There is no hydronephrosis of either kidney. There is a 3 mm nonobstructive calculus at the inferior pole of the left kidney. There is no abdominal aortic aneurysm. No pathologic lymphadenopathy is identified by size criteria within the limitations of this noncontrast study. The uterus contains an IUD. The ovaries are not definitely seen. The colonic stool burden is moderate. There are areas of eccentric wall thickening in the descending and sigmoid colon which may be due to peristalsis although an underlying mass is not ruled out. The appendix is normal. There is a loop of distal ileum that demonstrates diffuse wall thickening, most consistent with ileitis. No acute osseous abnormality is identified. There is no pathologic distention of the small bowel to suggest small bowel obstruction. IMPRESSION: Diffuse wall thickening of a loop of distal ileum most consistent with ileitis. Correlate clinically for possible inflammatory bowel disease. Ascending aortic aneurysm measuring approximately 4.7 cm. Large hiatal hernia with the fluid-filled gastric fundus located in the posterior mediastinum. Aspiration precautions are recommended. Normal appendix Moderate colonic stool burden. Correlate clinically for constipation.
[2025-03-15 21:09] LABS: INR 0.97 (0.9-1.15); Partial Thromboplastin Time 23.9 SEC (24.5-34.5); Prothrombin Time 10.3 sec (9.3-11.8)
[2025-03-15 21:09] LABS: Iron 18.0 ug/dL (50-170); Total Iron Binding Capacity 459.0 ug/dL (250-425)
[2025-03-15 21:15] LABS: Alanine Aminotransferase 37.0 U/L (7-40); Alkaline Phosphatase 116.0 U/L (46-116); Total Protein 6.7 g/dL (5.7-8.2)
[2025-03-15 21:16] LABS: Albumin 4.1 g/dL (3.2-4.8); Bilirubin, Direct 0.2 mg/dL (<0.3); Bilirubin, Total 0.6 mg/dL (0.2-1.0)
[2025-03-15 23:24] VITALS: BP 112/73; PULSE 86; RESP 19; TEMP 98.1; O2SAT 97
[2025-03-15] MEDS ORDERED: ASCO500T6 PO (23:28)
[2025-03-15] MEDS ORDERED: FOLI-119 PO (23:28)
[2025-03-15] MEDS ORDERED: FER325T PO (23:28)
[2025-03-16] VITALS (8 sets, daily range): BP systolic 101–138; BP diastolic 63–101; PULSE 73–85; RESP 16–18; TEMP 97.6–98.9; O2SAT 95–98
[2025-03-16 09:21] LABS: Hematocrit 21.2 % (36.0-46.0); Mean Corpuscular Hemoglobin 18.5 pg (28.0-32.0); Mean Corpuscular Volume 62.9 fL (80.0-100.0); Nucleated Red Blood Cells % 0.3 %
--- NOTE | 2025-03-16 09:28 | DVH ---
CHEST RADIOGRAPH Indication: Rule out pneumonia Technique: Single frontal view of the chest was obtained. Comparison: XY CHEST PORTABLE on DOS: 01/27/25 Findings: Large hiatal hernia. No focal consolidation. No significant pleural effusion. No pneumothorax. Stable enlarged cardiomediastinal silhouette. IMPRESSION: No focal consolidation. Stable enlarged cardiomediastinal silhouette.
[2025-03-16 09:33] LABS: Hemoglobin 6.2 g/dL (12.2-16.2)
[2025-03-16 09:41] LABS: Alanine Aminotransferase 29 U/L (7-40); Albumin 3.9 g/dL (3.2-4.8); Alkaline Phosphatase 102 U/L (46-116); Anion Gap 9 (5-15); BUN/Creatinine Ratio 15.0 (10.0-20.0); Blood Urea Nitrogen 15 mg/dL (9-23); Carbon Dioxide 25 mmol/L (20-31); Chloride 106 mmol/L (98-107); Glucose 94 mg/dL (74-106); Potassium 4.0 mmol/L (3.5-5.1); Sodium 140 mmol/L (136-145); Total Protein 6.6 g/dL (5.7-8.2)
[2025-03-16 09:42] LABS: Bilirubin, Total 0.5 mg/dL (0.2-1.0)
[2025-03-16 09:47] LABS: Calcium 8.2 mg/dL (8.7-10.4)
--- NOTE | 2025-03-16 09:57 | DVH ---
Bilateral lower extremity venous duplex Clinical History: h/o dvt, on eliquis but stopped due to severe anemia Comparison: None Technique: Duplex Doppler evaluation of the deep venous systems of both lower extremities from the common femoral veins to the popliteal veins including color Doppler and spectral/pulsed waveform analysis was performed. Findings: RIGHT SIDE: The common femoral vein demonstrates appropriate compressibility and waveform variability. There is compressibility/patency of the great saphenous vein at the proximal thigh. The femoral vein demonstrates appropriate compressibility and waveform variability. The deep femoral vein demonstrates appropriate compressibility and waveform variability. The popliteal vein demonstrates appropriate compressibility and waveform variability. There is normal compressibility at the tibioperoneal trunk. LEFT SIDE: The common femoral vein demonstrates appropriate compressibility and waveform variability. There is compressibility/patency of the great saphenous vein at the proximal thigh. The femoral vein demonstrates appropriate compressibility and waveform variability. The deep femoral vein demonstrates appropriate compressibility and waveform variability. The popliteal vein demonstrates appropriate compressibility and waveform variability. There is normal compressibility at the tibioperoneal trunk. Impression: 1. No right or left femoropopliteal venous thrombosis.
[2025-03-16 10:24] LABS: Iron 15.0 ug/dL (50-170)
[2025-03-16 10:25] LABS: Total Iron Binding Capacity 417.0 ug/dL (250-425)
[2025-03-16] MEDS: CIPROFLOXACIN 400MG/200ML 200 ML IV SCH (10:29)
[2025-03-16] MEDS: CARVEDILOL 3.125 MG TAB PO SCH (10:29)
[2025-03-16] MEDS: LISINOPRIL 20 MG TAB PO SCH (10:30)
[2025-03-16] MEDS: FERROUS SULFATE 325mg EC TAB PO SCH (12:34)
[2025-03-16] MEDS: SODIUM CHLORIDE 0.9% 1,000 ML IV ONE (14:15)
[2025-03-16] MEDS: FOLIC ACID 1 MG TAB PO SCH (16:24)
[2025-03-16] MEDS: PANTOPRAZOLE 40 MG/10 ML VIAL INJ IV SCH (16:24)
--- NOTE | 2025-03-16 17:10 | DVHPNRES ---
Progress Note Date Seen: Mar 16, 2025 Resident Creating Document: CALDERON PENA RESIDENT Medical Necessity Reason Pt with a Central, PICC or Fol: No Subjective Review of Systems 45 year old female with past medical history of anemia, hypertension, DVT on Eliquis, arthritis, depression, anxiety, ascending aortic aneurysm presented to the hospital with complaints of abdominal pain, lightheadedness, shortness of breath since 2 days. Patient says that she has been having anemia for the past 3 years. She 1st noticed having shortness of breath 3 years back when blood work revealed anemia. Patient says he is on iron pills. She rates the pain 8 on 10 in intensity, dull, radiating diffusely around the abdomen and increasing on walking. She has had an EGD, colonoscopy and bone marrow biopsy done in December this year. Patient says that all these test came back negative. She also has had multiple imaging tests come back negative. PMHx:anemia, hypertension, DVT on Eliquis, arthritis, depression, anxiety, ascending aortic aneurysm PSHx:Cholecystectomy, hernia repair Family history: nonrelevant Social history: denies smoking, occasional alcohol use, admits to methamphetamine use last use 2 days back. [facility] Home medication: For appy on, lisinopril, Coreg, Eliquis Allergic history: amoxicillin, bacitracin, clavulanic acid, neomycin, penicillin, polymyxin General: patient denies fever, fatigue, weaknes, sweating, any recent changes in appetite and weight HEENT: No headaches, visiual changes, hearing loss, tinnitus, nasal congestion and discharge, and sore throat. Cardiovascular: Denies chest pain, palpitations, dyspnea on exertion, orthopnea, or claudication. Respiratory: No cough, and wheezing. Gastrointestinal: complains of abdominal pain Genitourinary: No dysuria, hematuria, discharge, frequency, urgency, nocturia, incontinence, and urinary retention. Endocrine: No heat or cold intolerance, polydipsia, polyuria, and polyphagia. Neurological: No dizziness, extremity weakness and numbness, tremors, gait disturbance, seizures, and memory impairment. Psychiatric: Denies depression, anxiety,or insomnia. Musculoskeletal: Denies neck pain, stiffness and swelling, back pain, muscle weakness, joint pain, stiffness, swelling, or limited range of motion. Skin: No rashes, itching, skin lesion, changes in hair, nail, skin texture and breast. Hematologic/Lymphatic: Denies easy bruising, bleeding tendencies, or lymph node enlargement. Objective vital signs Vital Sign Date Time Temp Pulse Resp B/P (MAP) Pulse Ox O2 Delivery O2 Flow Rate FiO2 03/16/25 12:47 97.7 82 16 130/73 (92) 98 97.7 03/16/25 08:00 Room Air* 0 21 Total Intake and Output 03/15/25 03/15/25 03/16/25 15:00 23:00 07:00 Intake Total 1100 ml Balance 1100 ml medications Current Medications Medications Dose Ordered Sig/Kassie Route Start Time Stop Time Status Last Admin Dose Admin Nitroglycerin 0.4 mg Q5MINP PRN SL 03/15/25 20:45 Morphine Sulfate 2 mg Q30M PRN IV 03/15/25 20:45 Metronidazole 100 ml @ 100 mls/hr Q8HR IV 03/16/25 12:00 03/16/25 12:35 100 MLS/HR Lisinopril 30 mg DAILY PO 03/16/25 10:00 03/16/25 10:30 30 MG Carvedilol 6.25 mg BID PO 03/16/25 10:00 03/16/25 10:29 6.25 MG Ferrous Sulfate 325 mg DAILY PO 03/16/25 10:30 03/16/25 12:34 325 MG Folic Acid 1 mg DAILY PO 03/16/25 14:15 03/16/25 16:24 1 MG Ceftriaxone Sodium 50 ml @ 100 mls/hr DAILY@09 IV 03/17/25 09:00 Future Hold Pantoprazole Sodium 40 mg DAILY IV 03/16/25 14:15 03/16/25 16:24 40 MG Examination General Appearance: Alert, Oriented X3, Cooperative, Mild distress HEENT: Atraumatic, Mucous membranes moist/pink Respiratory: Clear to auscultation, Normal air movement, No added sounds Cardiovascular: Regular rate, Normal S1, Normal S2, No murmurs Abdominal/ : Active bowel sounds, Soft, no distention, diffuse abdominal tenderness Rectal exam: No active bleeding, no external hemorrhoids noted, no abscess, stool FOBT sent. Extremities: No edema, Normal pulses, No tenderness/swelling Skin: No Significant rash, except past surgical scars Neuro: Normal speech, sensorimotor deficits none Psych/Mental Status: Mental status NL, Mood NL laboratory and microbiology Laboratory Tests 03/16/25 09:11 Test 03/16/25 09:11 Range/Units Serum Glucose 94 74-106 mg/dL Problem List/Assessment/Plan Problem List/Assessment/Plan Assessment/Plan Severe microcytic hypochromic anemia possibly due to GI bleed Iron-deficiency anemia (hemoglobin 6.5) History of blood transfusion Ascending aortic aneurysm measuring 4.7 cm low transferrin saturation, high TIBC LDH, haptoglobin reticulocyte ordered GI consult Protonix MCV low Iron sulfate IV fluids Yearly follow up with CT angiogram/echo to see for the ascending aortic aneurysm PRBC Large hiatal hernia Ileitis Possible IBD History of gastritis Ceftriaxone, Flagyl IV pantoprazole Abdomen pelvis CT:Diffuse wall thickening of a loop of distal ileum most consistent with ileitis. Correlate clinically for possible inflammatory bowel disease.Ascending aortic aneurysm measuring approximately 4.7 cm.Large hiatal hernia with the fluid-filled gastric fundus located in the posterior mediastinum. Aspiration precautions are recommended.Normal appendix Moderate stool burden, constipation ruled out MiraLax, if needed History of upper extremity DVT Held Eliquis due to severe anemia Hypertensive heart disease Essential hypertension lisinopril Carvedilol Major depressive disorder Continue bupropion Anxiety disorder Ativan p.r.n. Osteoarthritis Follow up with PCP on discharge GI prophylaxis: Pantoprazole DVT prophylaxis: Held due to severe anemia Diet: Clear liquid Goals of care Full code status Case discussed with Dr. Fiore Plan discussed with: Patient My Orders My Orders Orders - CALDERON PENA RESIDENT Procedure Category Date Status Time * Gi [facility] [employer] Editor CONS 03/16/25 Transmitted 06:37 Strict Aspiration JAYASHREE 03/16/25 In Process Precautions 08:20 Bilat Lower Dvt US 03/16/25 Resulted 09:08 Ferrous Sulfate Tablet PHA 03/16/25 In Process 10:30 Folic Acid Tablet PHA 03/16/25 In Process 14:15 Ceftriaxone 1gm/50ml PHA 03/17/25 In Process (Rocephin) 09:00 Sodium Chloride 0.9% PHA 03/16/25 In Process 14:15 Pantoprazole PHA 03/16/25 In Process (Protonix) 14:15 Complete Blood Count LAB 03/17/25 Verified 04:00 Comprehensive LAB 03/17/25 Verified Metabolic Panel 04:00 Date of Service: Mar 16, 2025 Billing Provider: ALBERT IRBY MD Common Visit Codes: [id number] INP/OBS CARE(HIGH) CALDERON PENA RESIDENT Mar 16, 2025 17:10
[2025-03-16 18:47] LABS: Urine Protein, UAD Negative (Negative)
[2025-03-16 18:56] LABS: Amphetamine Screen, Urine Pos (NEGATIVE); Barbiturate Scree,Urine Neg (NEGATIVE); Benzodiazephine Screen, Urine Neg (NEGATIVE); Cannabinoid Screen, Urine Neg (NEGATIVE); Cocaine Screen, Urine Neg (NEGATIVE); Opiate Scree,Urine Neg (NEGATIVE); Phencyclidine Screen, Urine Neg (NEGATIVE)
[2025-03-17] VITALS (12 sets, daily range): BP systolic 120–152; BP diastolic 70–92; PULSE 72–82; RESP 14–20; TEMP 97.5–98.6; O2SAT 95–99
[2025-03-17 06:32] LABS: Hematocrit 22.7 % (36.0-46.0); Mean Corpuscular Hemoglobin 19.0 pg (28.0-32.0); Mean Corpuscular Volume 63.8 fL (80.0-100.0); Nucleated Red Blood Cells % 0.3 %
[2025-03-17 06:46] LABS: Alanine Aminotransferase 27 U/L (7-40); Alkaline Phosphatase 85 U/L (46-116); Anion Gap 9 (5-15); BUN/Creatinine Ratio 14.1 (10.0-20.0); Blood Urea Nitrogen 13 mg/dL (9-23); Carbon Dioxide 23 mmol/L (20-31); Glucose 96 mg/dL (74-106); Potassium 4.1 mmol/L (3.5-5.1); Sodium 140 mmol/L (136-145); Total Protein 6.0 g/dL (5.7-8.2)
[2025-03-17 06:47] LABS: Albumin 3.6 g/dL (3.2-4.8)
[2025-03-17 06:52] LABS: Bilirubin, Total 1.3 mg/dL (0.2-1.0); Calcium 8.2 mg/dL (8.7-10.4); Chloride 108 mmol/L (98-107)
[2025-03-17 07:08] LABS: Hemoglobin 6.8 g/dL (12.2-16.2)
--- NOTE | 2025-03-17 16:46 | DVHDSRES ---
Discharge Summary Date of Admission Resident Creating Document: CALDERON PENA RESIDENT Mar 15, 2025 at 20:36 Date of Discharge: Mar 17, 2025 Labs/Diagnostic Data: Laboratory Results Test 03/17/25 08:15 03/17/25 05:05 03/16/25 17:16 03/16/25 09:11 Plasma/Serum Blood Alcohol < 3.0 mg/dL (<10) White Blood Count 3.5 10^3/uL (4.4-10.8) Red Blood Count 3.56 10^6/uL (4.0-5.20) Hemoglobin 6.8 g/dL (12.2-16.2) Hematocrit 22.7 % (36.0-46.0) Mean Corpuscular Volume 63.8 fL (80.0-100.0) Mean Corpuscular Hemoglobin 19.0 pg (28.0-32.0) Mean Corpuscular Hemoglobin Concent 29.8 g/dL (32.0-36.0) Red Cell Distribution Width 24.5 % (11.8-14.3) Platelet Count 323 10^3/uL (140-450) Mean Platelet Volume 8.3 fL (6.9-10.8) Neutrophils (%) (Auto) 58.6 % (37.0-80.0) Lymphocytes (%) (Auto) 25.6 % (10.0-50.0) Monocytes (%) (Auto) 12.4 % (0.0-12.0) Eosinophils (%) (Auto) 2.3 % (0.0-7.0) Basophils (%) (Auto) 1.1 % (0.0-2.0) Neutrophils # (Auto) 2.0 10 ^3/uL (1.6-8.6) Lymphocytes # (Auto) 0.9 10 ^3/uL (0.4-5.4) Monocytes # (Auto) 0.4 10 ^3/uL (0-1.3) Eosinophils # (Auto) 0.1 10 ^3/uL (0-0.8) Basophils # (Auto) 0 10 ^3/uL (0-0.2) Nucleated Red Blood Cells 0.3 % Sodium Level 140 mmol/L (136-145) Potassium Level 4.1 mmol/L (3.5-5.1) Chloride Level 108 mmol/L (98-107) Carbon Dioxide Level 23 mmol/L (20-31) Anion Gap 9 (5-15) Blood Urea Nitrogen 13 mg/dL (9-23) Creatinine 0.92 mg/dL (0.550-1.02) Glomerular Filtration Rate Calc 79 mL/min (>90) BUN/Creatinine Ratio 14.1 (10.0-20.0) Serum Glucose 96 mg/dL (74-106) Calcium Level 8.2 mg/dL (8.7-10.4) Total Bilirubin 1.3 mg/dL (0.2-1.0) Aspartate Amino Transferase (AST) 36 U/L (13-40) Alanine Aminotransferase (ALT) 27 U/L (7-40) Alkaline Phosphatase 85 U/L (46-116) Total Protein 6.0 g/dL (5.7-8.2) Albumin 3.6 g/dL (3.2-4.8) Urine Color Light-yellow (Yellow) Urine Clarity Clear (Clear) Urine pH 6.0 (5.0-9.0) Urine Specific Coats 1.011 (1.001-1.035) Urine Protein Negative (Negative) Urine Ketones Negative (Negative) Urine Blood Negative /uL (Negative) Urine Nitrite Negative (Negative) Urine Bilirubin Negative (Negative) Urine Urobilinogen Normal mg/dL (Negative) Urine Leukocyte Esterase 2+ /uL (Negative) Urine RBC 1 /hpf (0 - 4) Urine Microscopic WBC 12 /HPF (0-5) Urine Squamous Epithelial Cells Few /hpf (<5) Urine Bacteria Few /hpf (None Seen) Urine Glucose Normal mg/dL (Normal) Urine Test Negative (Negative) Urine Opiates Screen Neg (NEGATIVE) Urine Fentanyl Screen Pos (NEGATIVE) Urine Barbiturates Screen Neg (NEGATIVE) Urine Phencyclidine Screen Neg (NEGATIVE) Urine Amphetamines Screen Pos (NEGATIVE) Urine Benzodiazepines Screen Neg (NEGATIVE) Urine Cocaine Screen Neg (NEGATIVE) Urine Cannabinoids Screen Neg (NEGATIVE) Iron Level 15 ug/dL (50-170) Total Iron Binding Capacity 417 ug/dL (250-425) Percent Iron Saturation 3.6 % (15-50) Ferritin 5.1 ng/mL (10-291) Test 03/16/25 01:20 03/15/25 20:25 03/15/25 19:25 Stool Occult Blood Positive (Negative) Stool Occult Blood Sample #3 (Negative) Haptoglobin 74 mg/dL (42-296) Direct Bilirubin 0.2 mg/dL (<0.3) Lactate Dehydrogenase 241 U/L (120-246) Troponin I High Sensitivity 11 ng/L (</=34) Platelet Estimate Adequate Hypochromasia (manual) Moderate Anisocytosis (manual) Slight Microcytosis Moderate Erythrocyte Sedimentation Rate 12 mm/hr (0-20) Reticulocyte Count (auto) 3.42 % (0.5-1.5) Prothrombin Time 10.3 sec (9.3-11.8) Prothrombin Time INR 0.97 (0.9-1.15) Activated Partial Thromboplast Time 23.9 SEC (24.5-34.5) C-Reactive Protein High Sensitivity 0.38 mg/dL (<1.0) Lipase 29 U/L (12-53) Other Laboratory Tests 03/17/25 05:05 Brief Hx & Hospital Course: 45 year old female with past medical history of anemia, hypertension, DVT on Eliquis, arthritis, depression, anxiety, ascending aortic aneurysm presented to the hospital with complaints of abdominal pain, lightheadedness, shortness of breath since 2 days. Patient says that she has been having anemia for the past 3 years. She 1st noticed having shortness of breath 3 years back when blood work revealed anemia. Patient says he is on iron pills. She rates the pain 8 on 10 in intensity, dull, radiating diffusely around the abdomen and increasing on walking. She has had an EGD, colonoscopy and bone marrow biopsy done in December this year. Patient says that all these test came back negative. She also has had multiple imaging tests come back negative. while in the hospital, hemoglobin levels were below 7 and hence 1 unit PRBC each were transfused on 2 separate days. Urine fentanyl and amphetamine screen came back positive. Stool occult blood was positive. CT abdomen revealed signs of ileitis, ascending aortic aneurysm and large hiatal hernia. She was treated with antibiotics, packed red blood cells and supportive treatment. GI consult was placed. But the patient left the hospital against medical advice. Discharge plan discharge plan could not be devised since the patient left AMA. Condition at Discharge: Undetermined Final Diagnosis/Problems List Severe microcytic hypochromic anemia possibly due to GI bleed Iron-deficiency anemia (hemoglobin 6.5) Large hiatal hernia Ileitis Gastritis History of blood transfusion Ascending aortic aneurysm measuring 4.7 cm Large hiatal hernia Ileitis Possible IBD Moderate stool burden, constipation ruled out Hypertensive heart disease Essential hypertension Major depressive disorder Anxiety disorder Osteoarthritis History of upper extremity DVT Discharge Disposition: AMA Discharge Instruct/Medications Scheduled Apixaban Base (Eliquis), 5 MG PO BID Ascorbic Acid (Gnp Vitamin C W/Allison Hips), 1 TAB PO DAILY, (Reported) Carvedilol (Carvedilol), 1 TAB PO BID Ferrous Sulfate (Ferrous Sulfate), 1 TAB PO DAILY, (Reported) Folic Acid (Folic Acid), 1 TAB PO DAILY, (Reported) Lisinopril (Lisinopril), 30 MG PO DAILY Pantoprazole Sodium Sesquihydr (Protonix), 40 MG PO DAILY Discharge Statement: "Patient was advised to return to the ER or call 911 if any headaches, dizziness, shortness of breath, chest pain, abdominal pain, bleeding, fevers, or worsening of medical condition. Patient was counseled about treatment plan, medications, possible side effects, patientverbalized understanding. All questions were answered to the best of my ability. This discharge took greater then 30 minutes in planning, reviewing documentation, counseling the patient, and discussing with other team members." ASSESSMENT ASSESSMENT Assessment Date of Service: Mar 17, 2025 Billing Provider: ALBERT IRBY MD Common Visit Codes: [id number] DISCH DAY >30min CALDERON PENA Mar 17, 2025 16:46
== END 2025-03-17 15:28 | disposition left against medical advice (07) | DRG 241 ==
LOC: ER 18:46 → OVERFLOW 20:36 → TELE-EAST 22:56
PROVIDERS: ADMIT Student in an Organized Health Care Education/Training Program; ATTEND Student in an Organized Health Care Education/Training Program
PROC: 30233N1 Transfusion of Nonautologous Red Blood Cells into Peripheral Vein, Percutaneous Approach (ICD-10-PCS; principal; 2025-03-17)
DX: K29.71 Gastritis, unspecified, with bleeding (principal); A04.9 Bacterial intestinal infection, unspecified; Z79.01 Long term (current) use of anticoagulants; D50.9 Iron deficiency anemia, unspecified; I71.40 Abdominal aortic aneurysm, without rupture, unspecified; F32.9 Major depressive disorder, single episode, unspecified; I11.9 Hypertensive heart disease without heart failure; K44.9 Diaphragmatic hernia without obstruction or gangrene; K52.9 Noninfective gastroenteritis and colitis, unspecified; F41.9 Anxiety disorder, unspecified; Z53.29 Procedure and treatment not carried out because of patient's decision for other reasons; Z86.718 Personal history of other venous thrombosis and embolism; Z88.0 Allergy status to penicillin; Z88.8 Allergy status to other drugs, medicaments and biological substances; Z90.49 Acquired absence of other specified parts of digestive tract
CPT/HCPCS: 36415; 71045; 74176; 80048; 80053; 80076; 80307; 80320; 81001; 81025; 82270; 82728; 83010; 83540; 83550; 83615; 83690; 84484; 85025; 85045; 85610; 85652; 85730; 86141; 86850; 86870; 86880; 86900; 86901; 86905; 86906; 86920; 86922; 87040; 93970; 96361; 96365; G0378; J2470; J3490